=== PATIENT | female | born 1970 | race Caucasian/White ===

== ENCOUNTER 2022-05-29 09:59 | Outpatient (CLI) | payer OTHER, SELFPAY ==
--- NOTE | 2022-05-29 10:15 | CRLHL7_ITS ---
For Patients: As a result of the Century Cures Act, medical imaging exams and procedure reports are released immediately into your electronic medical record. You may view this report before your referring provider. If you have questions, please contact your health care provider. BILATERAL SCREENING MAMMOGRAM WITH COMPUTER-AIDED DETECTION AND TOMOSYNTHESIS TECHNIQUE: CC and MLO views were obtained. These mammographic images have been obtained using full-field digital technique. These mammographic images were interpreted with the benefit of computer-aided detection. Breast Tomosynthesis was used in this interpretation. COMPARISON FILM: 08/02/20, 05/05/19, 12/27/17. FINDINGS: There are scattered areas of fibroglandular density IMPRESSION: There is no radiographic evidence for malignancy. ASSESSMENT: BI-RADS Category 1: Negative RECOMMENDATION: Routine screening mammogram in 1 year. A lay language report of this examination will be provided to the patient. Prasad Lei M.D. Diagnostic Radiologist [email or web address] MARY/Dictated by: Prasad Lei MD @ 05/29/2022 11:26:00 AM (Electronically Signed)
== END 2022-05-29 10:00 | disposition home or self-care (01) ==
LOC: MAMMO 10:02
PROVIDERS: PCP Family Medicine; Visit Provider Family Medicine
DX: Z12.31 Encounter for screening mammogram for malignant neoplasm of breast (principal)
CPT/HCPCS: 77063; 77067

== ENCOUNTER 2022-11-09 08:30 | Outpatient (CLI) | payer OTHER, SELFPAY | END 2022-11-09 08:31 | disposition home or self-care (01) | LOC: NFLDREF 11-10 11:17 | PROVIDERS: PCP Family Medicine; Referring Provider Family Medicine; Visit Provider Family Medicine | DX: Z00.00 Encounter for general adult medical examination without abnormal findings (principal); E78.5 Hyperlipidemia, unspecified; R73.03 Prediabetes; E55.9 Vitamin D deficiency, unspecified; E66.9 Obesity, unspecified | CPT/HCPCS: 80053; 80061 ==

== ENCOUNTER 2022-11-12 07:08 | Outpatient (CLI) | payer OTHER, SELFPAY | END 2022-11-12 07:09 | disposition home or self-care (01) | LOC: NFLDREF 07:10 | PROVIDERS: PCP Family Medicine; Visit Provider Family Medicine | DX: E55.9 Vitamin D deficiency, unspecified (principal); R73.03 Prediabetes | CPT/HCPCS: 82306 ==

== ENCOUNTER 2023-06-25 08:58 | Outpatient (CLI) | payer OTHER, SELFPAY | END 2023-06-25 08:59 | disposition home or self-care (01) | LOC: NFLDREF 14:50 | PROVIDERS: PCP Family Medicine; Referring Provider Family Medicine; Visit Provider Family Medicine | DX: E55.9 Vitamin D deficiency, unspecified (principal); R73.03 Prediabetes; E78.5 Hyperlipidemia, unspecified | CPT/HCPCS: 80061; 82306 ==

== ENCOUNTER 2023-08-02 08:05 | Outpatient (CLI) | payer BC, SELFPAY ==
--- OUTSIDE RECORDS SUMMARY | 2023-08-02 08:07 | XMS_ITS | Encounter Summary ---
Author Name Unknown Organization [facility] Address [address] [place] [address] Care Team Providers Care Wire Spiral Binder Name Role Phone Elsewhere, Pcp Primary Care Provider Unavailabl e Encounter Details Date Type Department Care Team (Latest Contact Info) Description 02/26/2023 12:53 PM CDT - 02/26/2023 11:59 PM CDT Hospital Encounter Department of Laboratory Medicine and Pathology, [facility] in [place], [place] [address] [place] [phone] Julito Bhat M.B., B.Ch., B.A.O. [address] [place] [phone] Beat Premature Ventricular; Ventricular Tachycardia Unspecified (HCC) Discharge Disposition: Home or Self Care Social History Tobacco Use Types Packs/Day Years Used Date Smoking Tobacco: Never Passive Smoke Exposure: Past Smokeless Tobacco: Never Alcohol Use Standard Drinks/Week Comments Yes 14 (1 standard drink = 0.6 oz pu re alcohol) Humiliation, Afraid, Rape, and Kick questionnair e Answer Date Recorded Within the last year, have y ou been afraid of your partner or ex-partner? No 01/21/2023 Within the last year, have y ou been humiliated or emotionally abused in other ways by your partner or ex-partner? No Within the last year, have y ou been kicked, hit, slapped, or otherwise physically hurt by your partner or ex-partner? No 01/21/2023 Within the last year, have y ou been raped or forced to have any kind of sexual activity by your partner or ex-partner? No 01/21/2023 Overall Financial Resource Strain (CARDIA) Answe r Date Recorded How hard is it for you to pa y for the very basics like food, housing, medical care, and heating? Not hard at all 01/21/2023 Exercise Vital Sign Answer Date Recorde d On average, how many days pe r week do you engage in moderate to strenuous exercise (like a brisk walk)? 7 days 01/21/2023 On average, how many minutes do you engage in exercise at this level? 40 min 01/21/2023 Hunger Vital Sign Answer Date Recorded Within the past 12 months, y ou worried that your food would run out before you got the money to buy more. Never true 01/22/20 Within the past 12 months, t he food you bought just didn't last and you didn't have money to get more. Never true 01/21/2023 PRAPARE - Transportation Answer Date Re corded In the past 12 months, has l ack of transportation kept you from medical appointments or from getting medications? No 01/09 In the past 12 months, has l ack of transportation kept you from meetings, work, or from getting things needed for daily living? No 01/21/2023 Nutrition Answer Date Recorded Nutrition: EVOO Fat Source Unknown 01/21 On average, how many serving s of fruits and vegetables do you eat per day (serving size is equal to 1 cup or approximately the size of a tennis ball)? 3-5 01/21/2023 Dental Answer Date Recorded Dental: Regular Dentist Yes 01/22/20 Housing Stability Answer Date Recorded What is your living situation today? I have a [facility] place to live 01/21/2023 Sex and Gender Information Value Date Recorded Sex Assigned at Female 01/21/2023 9:13 AM CDT Gender Identity Female 01/21/2023 9:13 AM CDT Sexual Orientation Straight 01/21/2023 9: 13 AM CDT documented as of this encounter Medications at Time of Discharge Medication Sig Dispensed Refills Start Date End Date famotidine (PEPCID) 20 mg tablet Take 20 mg by mouth as needed. 0 11/12/2009 rosuvastatin (CRESTOR) 5 mg tablet Take 5 mg by mouth daily. 0 11/12/2022 sertraline (ZOLOFT) 25 mg tablet Take 25 mg by mouth daily. 0 Vitamin D3 50 mcg (2,000 unit) tablet Take 50 mcg by mouth daily. 0 11/12/2022 apixaban (ELIQUIS) 5 mg tablet Take 1 tablet (5 mg total) by mouth 2 (two) times a day. For 1 month, then discontinue. 60 tablet 0 03/01/2023 05/20/2023 documented as of this encounter Plan of Treatment Not on file documented as of this encounter Procedures Procedure Name Priority Date/Time Associated Diagnosis Comments THYROID FUNCTION CASCADE, S Routine 02/26/2023 1:03 PM CDT Beat Premature Ventricular Ventricular Tachycardia Unspecified (HCC) CBC WITHOUT DIFFERENTIAL, B Routine 02/26/2023 1:03 PM CDT Beat Premature Ventricular Ventricular Tachycardia Unspecified (HCC) TYPE AND SCREEN Routine 02/26/2023 1:03 PM CDT Beat Premature Ventricular Ventricular Tachycardia Unspecified (HCC) BASIC METABOLIC PANEL, S/P Routine 02/26/2023 1:03 PM CDT Beat Premature Ventricular Ventricular Tachycardia Unspecified (HCC) documented in this encounter Results * Thyroid Function Evans (02/26/2023 1:03 PM CDT) TSH, Sensitive 2.1 0.3 - 4.2 mIU/L 02/26/2023 2:16 PM CDT DTL Blood (Blood, Venous) 02/26/2023 1:03 PM CDT 02/26/2023 1:47 PM CDT Julito Baker B.Simba., B.A.O. LAB BL OOD ADD-ON [facility] [address] [place] [address], [facility] DTL [facility] 200 [place] [address] * Type and Screen (with Reflex Antibody ID) (02/26/2023 1:03 PM CDT) [facility] ABORh O Pos Not applicable 02/26/2023 4:45 PM CDT ETRM Antibody Screen Negative Negative 02/26/2023 5:03 PM CDT ETRM Type & Screen Expiration 04/26/2023 23:59 02/26/2023 4:45 PM CDT ETRM Testing Location [place] DEFAULT 02/26/2023 1:36 PM CDT ETRM Blood (Blood, Venous) 02/26/2023 1:03 PM CDT 02/26/2023 1:36 PM CDT Julito Baker, B.Ch., B.A.O. LAB BL OOD BANK TEST ORDERABLES [facility] 200 [place] [address], [facility] ETRM [facility] 200 [place] [address] * Basic Metabolic Panel (02/26/2023 1:03 PM CDT) [facility] Potassium, S 4.6 3.6 - 5.2 mmol/L 02/26/2023 2:16 PM CDT DTL Sodium, S 142 135 - 145 mmol/L 02/26/2023 2:16 PM CDT DTL Chloride, S 104 98 - 107 mmol/L 02/26/2023 2:16 PM CDT DTL Bicarbonate, S 29 22 - 29 mmol/L 02/26/2023 2:16 PM CDT DTL Anion Gap 9 7 - 15 02/26/2023 2:16 PM CDT DTL BUN (Blood Urea Nitrogen), S 14 6 - 21 mg/dL 02/26/2023 2:16 PM CDT DTL Creatinine 0.88 0.59 - 1.04 mg/dL 02/26/2023 2:16 PM CDT DTL Estimated GFR (eGFR) 80 >=60 mL/min/BSA 02/26/2023 2:16 PM CDT DTL Comment: Estimated GFR calculated using the 2020 CKD_EPI creatinine equation. Calcium, Total, S 9.7 8.6 - 10.0 mg/dL 02/26/2023 2:16 PM CDT DTL Glucose, S 95 70 - 140 mg/dL 02/26/2023 2:16 PM CDT DTL Blood (Blood, Venous) 02/26/2023 1:03 PM CDT 02/26/2023 1:47 PM CDT Julito Baker, B.Ch., B.A.O. LAB BL OOD ADD-ON [facility] 200 [place] [address], [facility] [address] [address] * CBC without Differential (02/26/2023 1:03 PM CDT) Hemoglobin 14.0 11.6 - 15.0 g/dL 02/26/2023 1:49 PM CDT DTL Hematocrit 44.1 35.5 - 44.9 % 02/26/2023 1:49 PM CDT DTL Erythrocytes 5.00 3.92 - 5.13 x10(12)/L 02/26/2023 1:49 PM CDT DTL MCV 88.2 78.2 - 97.9 fL 02/26/2023 1:49 PM CDT DTL RBC Distrib Width 13.5 12.2 - 16.1 % 02/26/2023 1:49 PM CDT DTL Platelet Count 271 157 - 371 x10(9)/L 02/26/2023 1:49 PM CDT DTL Leukocytes 7.7 3.4 - 9.6 x10(9)/L 02/26/2023 1:49 PM CDT DTL Blood (Blood, Venous) 02/26/2023 1:03 PM CDT 02/26/2023 1:41 PM CDT Julito Baker, B.Simba., B.A.O. LAB BL OOD ADD-ON [facility] [address] [place] [address], [facility] [address] [place] [address] documented in this encounter Visit Diagnoses Diagnosis Beat Premature Ventricular Ventricular Tachycardia Unspecified (HCC) documented in this encounter Care Teams Wire Spiral Binder Relationship Specialty Start Date End Date Elsewhere, Pcp PCP - General Internal Medicine 02/26/23 documented as of this encounter
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
--- OUTSIDE RECORDS SUMMARY | 2023-08-02 08:07 | XMS_ITS | Encounter Summary ---
Author Name Unknown Organization [facility] Address [address] [place] [address] Care Team Providers Care Director Underwriter Sales Name Role Phone Elsewhere, Pcp Primary Care Provider Unavailabl e Reason for Visit * Outpatient (Routine) - Closed Specialty Diagnoses / Procedures Referred By Contac t Referred To Contact Diagnoses Beat Premature Ventricular Procedures Echo - Intraprocedural Images Only Juliot Bhat M.B., B.Ch., B.A.O. [address] [place] [phone] [facility] Referral ID Status Reason Start Date Expiration Date Visits Re quested Visits Authorized [id number] Closed 03/04/2023 03/03/2024 1 1 Encounter Details Date Type Department Care Team (Latest Contact Info) Description 03/01/2023 - 03/01/2023 7:44 AM CDT Hospital Encounter Department of Cardiovascular Diseases in [place], [place] [address] [place] [phone] Julito Bhat M.B., B.Ch., B.A.O. [address] [place] [phone] Beat Premature Ventricular Discharge Disposition: Home or Self Care Social [...] your living situation today? I have a [facility] place to live 01/21/2023 Sex and Gender [...] Procedure Name Priority Date/Time Associated Diagnosis Comments ECHO - INTRAPROCEDURAL IMAGES ONLY Routine 03/01/2023 5:41 PM CDT Beat Premature Ventricular documented in this encounter Results * Echo - Intraprocedural Images Only (03/01/2023 5:41 PM CDT) Narrative [facility] - 03/04/2023 5:41 PM CDT Echocardiographic images obtained during EP. See EP report for findings. Julito Baker, B.Simba., B.A.O. CV ECH O PROCEDURES [facility] NA documented in this encounter Visit Diagnoses Diagnosis Beat Premature Ventricular documented in this encounter Care Teams Director Underwriter Sales Relationship Specialty Start Date End Date Elsewhere, Pcp PCP - General Internal Medicine 02/26/23 documented as of this encounter
--- OUTSIDE RECORDS SUMMARY | 2023-08-02 08:07 | XMS_ITS | Encounter Summary ---
Author Name Unknown Organization [facility] Address [address] [place] [address] Care Team Providers Care [employer] Artistic Director Name Role Phone Elsewhere, Pcp Primary Care Provider Unavailabl e Reason for Referral * Outpatient (Routine) - Authorized Specialty Diagnoses / Procedures Referred By Contac t Referred To Contact Diagnoses Beat Premature Ventricular Procedures ECG Heart rhythm monitor (Holter) Margarita Barreto APRN, C.N.P., D.N.P. [address] [place] [phone] [facility] Referral ID Status Reason Start Date Expiration Date V isits Requested Visits Authorized [id number] Authorized 03/01/2023 02/29/2024 1 1 LANCE OPERATOR Reason for Visit * Outpatient (Routine) - Authorized Specialty Diagnoses / Procedures Referred By Contac t Referred To Contact Diagnoses Beat Premature Ventricular Procedures ECG Heart rhythm monitor (Holter) Margarita Barreto APRN, C.N.P., D.N.P. [address] [place] [phone] [facility] Referral ID Status Reason Start Date Expiration Date V isits Requested Visits Authorized [id number] Authorized 03/01/2023 02/29/2024 1 1 Encounter Details Date Type Department Care Team (Latest Contact Info) Description 05/21/2023 8:40 AM FREELANCE OPERATOR - 05/21/2023 11:59 PM FREELANCE OPERATOR Hospital Encounter Department of Cardiovascular Diseases in [place], [place] [address] [place] [phone] Margarita Barreto APRN, C.N.P., D.N.P. [address] [place] [phone] Beat Premature Ventricular Discharge Disposition: Home or [...] your living situation today? I have a [facility] place to live 01/21/2023 Sex and [...] 50 mcg by mouth daily. 0 11/12/2022 documented as of this encounter Plan of Treatment Not on file documented as of this encounter Procedures Procedure Name Priority Date/Time Associated Diagnosis Comments HOLTER MONITOR - IN CLINIC OCEANOGRAPHY TEACHER Routine 05/22/2023 1:31 AM FREELANCE OPERATOR Beat Premature Ventricular documented in this encounter Results * HOLTER MONITOR - IN CLINIC OCEANOGRAPHY TEACHER (05/22/2023 1:31 AM FREELANCE OPERATOR) Min Heart Rate 51 bpm INFOB IONIC MOME Max Heart Rate 130 bpm INFOB IONIC MOME Mean Heart Rate 69 bpm INFOBIONIC MOME VE Total Beats 5 count INFOB IONIC MOME VE Percent Beats less than 1 percent INFOBIONIC MOME SVE Total Beats 6 count INFOBIONIC MOME SVE Percent Beats less than 1 percent INFOBIONIC MOME AF Count 0 count INFOBIONIC MOME AF Duration 0 duration INFOBION IC MOME AF Iola 0 percent INFOBIONIC MOME Symptom Count 0 count INFOBI ONIC MOME 05/21/2023 8:55 AM FREELANCE OPERATOR Narrative INFOBIONIC MOME - 05/24/2023 2:58 PM FREELANCE OPERATOR 1. The basic rhythm was sinus with sinus arrhythmia. The total analyzed time was 23h 47m. The heart rate varied from 51 to 130 bpm. The average HR was 69 bpm. 2. Premature ventricular complexes were noted singly. There were 5 PVCs recorded with a PVC burden of less than 1%. 3. Premature supraventricular complexes were noted singly. There were 6 PACs recorded with a PAC burden of less than 1%. 4. No symptomatic events were noted. Derivatives Trader: Heavenly Correa/956 Fellow: Herb Velazquez Procedure Note Shon Aggarwal M.D. - 05/24/2023 1. The basic rhythm was sinus with sinus arrhythmia. The total analyzedtime was 23h 47m. The heart rate varied from 51 to 130 bpm. The average HRwas 69 bpm. 2. Premature ventricular complexes were noted singly. There were 5 PVCsrecorded with a PVC burden of less than 1%. 3. Premature supraventricular complexes were noted singly. There were 6PACs recorded with a PAC burden of less than 1%. 4. No symptomatic events were noted. Derivatives Trader: Heavenly Correa/956 Fellow: Herb Velazquez Margarita Barreto APRN, C.N.P., D.N.P. CV C[facility] PROCEDURES [facility] NA documented in this encounter Visit Diagnoses Diagnosis Beat Premature Ventricular documented in this encounter Care Teams [employer] Artistic Director Relationship Specialty Start Date End Date Elsewhere, Pcp PCP - General Internal Medicine 02/26/23 documented as of this encounter
--- OUTSIDE RECORDS SUMMARY | 2023-08-02 08:07 | XMS_ITS | Encounter Summary ---
Author Name Unknown Organization [facility] Address [address] [place] [id number] Care Team Providers Care Head Of Conservation Name Role Phone Elsewhere, Pcp Primary Care Provider Unavailabl e Reason for Visit * Auth/Cert (Routine) Specialty Diagnoses / Procedures Referred By Contac t Referred To Contact Diagnoses Beat Premature Ventricular Ventricular Tachycardia Unspecified (HCC) Beat Premature Ventricular [I49.3] Ventricular Tachycardia Unspecified (HCC) [I47.20] Procedures [place] EP EVAL W VENT TACHY ABLATE ABLATION - PVC Referral ID Status Reason Start Date Expiration Date Visits Re quested Visits Authorized [id number] 1 1 Encounter Details Date Type Department Care Team (Late st Contact Info) Description 03/01/2023 8:15 AM CDT - 03/01/2023 2:05 PM CDT Surgery Division of Cardiovascular Diseases in [place], [place] [address] [place] [phone] Julito Bhat M.B., B.Ch., B.A.O. [address] [place] [phone] Ablation - PVC Social History Tobacco Use Types Packs/Day Years [...] your living situation today? I have a [facility] place to live 01/21/2023 Sex and Gender Information Value Date Recorded Sex Assigned at Female 01/21/2023 9:13 AM CDT Gender Identity Female 01/21/2023 9:13 AM CDT Sexual Orientation Straight 01/21/2023 9: 13 AM CDT documented as of this encounter Last Filed Vital Signs Vital Sign Reading Time Taken Comments Blood Pressure 176/79 03/01/2023 2:00 PM CDT Pulse 58 03/01/2023 2:00 PM CDT Temperature 36.7 ??C (98.1 ??F) 03/01/2023 8:01 AM CD T Respiratory Rate 10 03/01/2023 8:01 AM CDT Oxygen Saturation 96% 03/01/2023 2:00 PM CDT Inhaled Oxygen Concentration - - Weight 97.6 kg (215 lb 2.7 oz) 03/01/2023 8:01 A M CDT Height 162.8 cm (5' 4.09) 03/01/2023 8:01 AM CD T Body Mass Index 36.83 03/01/2023 8:01 AM CDT documented in this encounter Discharge Summaries * Margarita Barreto APRN, C.N.P., D.N.P. - 03/01/2023 2:08 PM CDT DISCHARGE SUMMARY BRIEF OVERVIEW Discharge Provider: Julito Bhat M.B., B.Ch., B.A.O., M.B. RST CVD Interventional/Heart Rhythm Admission Date: 03/01/2023 Discharge Date: 03/01/2023 PRINCIPAL DIAGNOSIS Hospital Problems as of 03/01/2023 1. Beat Premature Ventricular Status post catheter ablation, February 2023 2. PreDiabetes 3. Obesity Body Mass Index 30-39.9 Adult 4. Gastroesophageal Reflux Disease 5. Dyslipidemia 6. Hernia Hiatal 7. Depression 8. Anxiety DISCHARGE DISPOSITION Home. CONDITION AT DISCHARGE Stable. DISCHARGE MEDICATIONS Discharge Medications TAKE these medications apixaban 5 mg tablet Commonly known as: ELIQUIS Take 1 tablet (5 mg total) by mouth 2 (two) times a day. For 1 month, then discontinue. famotidine 20 mg tablet Commonly known as: PEPCID Take 20 mg by mouth as needed. rosuvastatin 5 mg tablet Commonly known as: CRESTOR Take 5 mg by mouth daily. sertraline 25 mg tablet Commonly known as: ZOLOFT Take 25 mg by mouth daily. Vitamin D3 50 mcg (2,000 Unit) tablet Take 50 mcg by mouth daily. Generic drug: cholecalciferol DIAGNOSTICS Results from last 7 days Lab Units 02/26/23 1303 WBC x10(9)/L 7.7 HEMOGLOBIN g/dL 14.0 HEMATOCRIT % 44.1 MCV fL 88.2 PLATELETS AUTO x10(9)/L 271 Results from last 7 days Lab Units 02/26/23 1303 SODIUM mmol/L 142 CHLORIDE mmol/L 104 CREATININE mg/dL 0.88 ESTIMATED GFR EGFR mL/min/BSA 80 BUN mg/dL 14 ANION GAP 9 GLUCOSE S mg/dL 95 CALCIUM mg/dL 9.7 ECG 12 Lead Result Date: 03/01/2023 Normal sinus rhythm Nonspecific ST abnormality When compared with ECG of 04-JAN-2023 12:50, Premature ventricular complexes are no longer present Reviewed by NOE Cannon VITALS Temperature: [36.7 ??C] 36.7 ??C Heart Rate: [51-74] 64 Resp Rate: [10] 10 Blood Pressure: (113-176)/(64-87) 113/64 SpO2: [91 %-98 %] 98 % Pulse Rate: [51-76] 51 PHYSICAL EXAM General: 52-year-old female in no acute distress. Heart: S1, S2. Lungs: Clear to auscultation bilaterally. No rales, wheezing, or rhonchi auscultated. Extremities: Warm and well-perfused. Neuro: Alert and cooperative. WOUND Right and left femoral catheter insertion sites are clean, dry and intact. No bleeding. No hematoma. No bruit. HOSPITAL COURSE Mrs. Hager was admitted to the hospital on March 01, 2023 for catheter ablation of ventricular ectopy performed by Dr. Bhat. There were no known complications. Mrs. Hager was not dismissed home on antiarrhythmic therapy. Due to Mrs. Hager's ablation procedure, she will require uninterrupted, therapeutic anticoagulation for a minimum of 1 month. She was initiated on Apixaban (Eliquis) 5 mg by mouth twice daily. Mrs. Hager is recommended to follow up with her local primary care provider in approximately 7 to10 days for a post hospital follow up appointment. Mrs. Hager will return to [facility] in approximately 3 months for a follow up appointment. Prior to that appointment, she will undergo an ECG and 24-hour Holter monitor. Margarita Barreto APRN, C.N.P., Jose De Jesus.N.P. documented in this encounter Discharge Instructions * Discharge Instructions* Margarita Barreto APRN, C.N.P., Jose De Jesus.N.P. - 03/01/2023 10:45 AM CDT You were discharged from the [facility] CVD Interventional/Heart Rhythm Service. Please identify this service name if you call with questions after hospitalization. Activity Restrictions: For 7 days after the procedure do not - lift, push, or pull more than 5-10 lbs - do strenuous exercise (biking, weight lifting, aerobics, golfing) - strain - participate in sexual activity - do not submerge the wound sites, you may shower Driving Restrictions: -do not drive for 24 hours after discharge from the hospital Work/School Restrictions: Return to work/school in 7 days. Recurrence of your Arrhythmia: Should you have sustained recurrence of your arrhythmia that last more than 24- 48 hours; or symptoms become intolerable, you should seek immediate medical attention with your local providers and get an ECG. Seek Emergent Medical Treatment for: Chest pain, passing out, stroke symptoms, shortness of breath, recurrence of your arrhythmia with symptoms that are severe, temperature greater than 101.4, or excessive/prolonged bleeding events. Care of your Puncture Sites: Bandages may be removed 24 hrs after the procedure. You do not need to place new bandages. The wounds heal best open to the air. If there is a small amount of oozing or bleeding new bandages can be placed in an effort to prevent damage to clothing but is not required. Note that mild bruising and color change without pain may occur during normal healing at the puncture site. If you have active bleeding or swelling of the puncture site: - Lie down and apply firm pressure with two or three fingers over the puncture site for 15 minutes. - If you are alone when bleeding occurs or after holding pressure for 15 minutes, the bleeding continues, call 911 and continue to hold pressure until help arrives. - Do not try to drive yourself to the hospital. Call Your Local Provider for: - New or expanding swelling greater than a size of a golf ball at the groin puncture site/s. - Signs of infection (redness, drainage, fever) at the puncture site/s - Change in color, temperature, or sensation in the leg - Unusual feelings of weakness or faintness. Contact Information: Should you have any questions, concerns, or problems that occur Wednesday through Wednesday between 8:00 a.m. and 4:00 p.m., contact the Electrophysiology Service at [phone]. For questions occurring after business hours, on weekends, nights, or holidays call [phone] and ask for Electrophysiology Director Of Early Childhood. Heart Failure Assessment: Weigh yourself at the same time every day on the same scale and record to bring to your next appointment. Please report any of the following signs or symptoms to your primary care provider urgently: - Weight increase of 2-3 pounds in one day or increase of 5 pounds over your baseline weight. - Increased swelling or bloating, fatigue, weakness, or shortness of breath. - Difficulty breathing, especially with activity and at night -Take your medications as directed; every day, every dose, and do not skip doses. -No tobacco (avoid secondhand smoke) -DO NOT avoid/skip your follow-up appointments, they are important! documented in this encounter Medications at Time of Discharge [...] as of this encounter Plan of Treatment Scheduled Referrals Name Type Priority Associated Diagnoses Order Schedule Cardiovascular Disease office visit (clinic) HRS Outpatient Referral Routine Expected: 06/01/2023 (Approximate), Expires: 06/01/2024 documented as of this encounter Procedures Procedure Name Priority Date/Time Associated Diagnosis Comments ECG Routine 03/01/2023 1:23 PM CDT ADULT OXYGEN THERAPY Routine 03/01/2023 12:40 PM CDT HEART RHYTHM PROCEDURE Routine 03/01/2023 12:25 PM CDT Beat Premature Ventricular Ventricular Tachycardia Unspecified (HCC) HEART RHYTHM PROCEDURE Routine 03/01/2023 12:25 PM CDT Beat Premature Ventricular Ventricular Tachycardia Unspecified (HCC) ACT, POCT, B Routine 03/01/2023 12:02 PM CDT ACT, POCT, B Routine 03/01/2023 11:35 AM CDT ACT, POCT, B Routine 03/01/2023 11:06 AM CDT ACT, POCT, B Routine 03/01/2023 10:35 AM CDT ACT, POCT, B Routine 03/01/2023 10:13 AM CDT documented in this encounter Results * HOLTER MONITOR - IN CLINIC ENTERPRISE INFRASTRUCTURE ARCHITECT (05/22/2023 1:31 AM LINEMARKER) Min Heart Rate 51 bpm INFOB IONIC [...] Duration 0 duration INFOBION IC MOME AF [place] 0 percent INFOBIONIC MOME Symptom Count 0 count INFOCANDIDA GIBBS 05/21/2023 8:55 AM LINEMARKER Narrative STEPHANIE GIBBS - 05/24/2023 2:58 PM LINEMARKER 1. The basic rhythm was sinus with [...] 1%. 4. No symptomatic events were noted. Development Vice President: Heavenly Correa/956 Fellow: Herb Velazquez Procedure Note [...] 1%. 4. No symptomatic events were noted. Development Vice President: Heavenly Correa/956 Fellow: Herb Velazquez Margarita Barreto APRN, C.N.P., D.N.P. CV CARDIAC SERVICES PROCEDURES STEPHANIE GIBBS NA * ECG 12 Lead (05/21/2023 8:31 AM LINEMARKER) Ventricular Rate ECG/Min 61 BPM MUSE [place] Interval 170 ms MUSE QRSD Interval 88 ms MUSE QT Interval 414 ms MUSE QTC Interval 416 ms MUSE P Flushing 10 degrees MUSE R [place]ushing 12 degrees MUSE T Wave [place] 47 degrees MUSE 05/21/2023 8:31 AM LINEMARKER 05/21/2023 8:39 AM LINEMARKER Impressions MUSE - 05/21/2023 8:39 AM LINEMARKER Normal sinus rhythm Nonspecific ST abnormality When compared with ECG of 01-MAR-2023 13:23, No significant change was found Reviewed by NOE Mitchell Narrative Procedure Note Ismael Mike Jr., M.D. - 05/21/2023 IMPRESSION: Normal sinus rhythm Nonspecific ST abnormality When compared with ECG of 01-MAR-2023 13:23, No significant change was found Reviewed by NOE Mitchell Margarita Barreto APRN C.N.P., D.N.P. EC G ORDERABLES Performing Organization Address [facility] Co de Phone Number MUSE NA * ECG 12 Lead (03/01/2023 1:23 PM CDT) Ventricular Rate ECG/Min 62 BPM MUSE [place] Interval 178 ms MUSE QRSD Interval 82 ms MUSE QT Interval 440 ms MUSE QTC Interval 446 ms MUSE P Flushing 47 degrees MUSE R [place] 31 degrees MUSE T Wave [place] 55 degrees MUSE 03/01/2023 1:23 PM CDT 03/01/2023 1:48 PM CDT Impressions MUSE - 03/01/2023 1:48 PM CDT Normal sinus rhythm Nonspecific ST abnormality When compared with ECG of 04-JAN-2023 12:50, Premature ventricular complexes are no longer present Reviewed by NOE Cannon Narrative Procedure Note Ismael Mike Jr., M.D. - 03/01/2023 IMPRESSION: Normal sinus rhythm Nonspecific ST abnormality When compared with ECG of 04-JAN-2023 12:50, Premature ventricular complexes are no longer present Reviewed by NOE Cannon Margarita Barreto APRN C.N.P., D.N.P. EC G ORDERABLES Performing Organization Address City/[facility] Co de Phone Number MUSE NA * ABLATION PVC, CARTOSOUND (03/01/2023 12:25 PM CDT) Anatomical Region Laterality Modality X-Ray Angiograph y 03/01/2023 8:59 AM CDT Narrative 03/01/2023 1:57 PM CDT For the complete report, see the Order-Level Documents. PROCEDURE TYPES 1. ??ABLATION - PVC ?? 2. ??3D MAPPING - CARTO ?? PRE-PROCEDURE DIAGNOSIS 1. ??Beat Premature Ventricular ?? 2. ??Ventricular Tachycardia Unspecified (HCC) ?? HRS NOTE Preparation After detailed description of the procedure, including the potential risks, benefits, and potential alternatives, informed consent was obtained from the patient. The patient was then brought to the electrophysiology laboratory and prepped and draped in the usual sterile fashion. ?? Anesthesia staff monitored the patient during the case. ??Anesthesia with MAC was utilized. Access/ Baseline Imaging and Catheters ?? Carto patches were applied for 3D electroanatomic mapping. ??The vascular access sites were locally anesthetized with 1% lidocaine. Using the Seldinger technique and under ultrasound guidance, the following introducer sheaths and catheters were placed: 8Fr femoral arterial sheath, 8 Fr right femoral venous sheath x 2, and 7 Fr left femoral venous sheath, and a 9 Fr left femoral venous sheath. Intracardiac echo was advanced into the right atrium and ventricle to assist with ablation, assess anatomy and monitor for complications. ??There was no pericardial effusion seen before, during or after the case. A quadripolar catheter was advanced to the RV apex. ??A Thermocool ST SF catheter was used for mapping and ablation. ??Additionally coronary sinus venous system was mapped. ?? A map it catheter was placed in the coronary sinus which was paced and recorded. ?? After systemic heparinization the left ventricle was accessed through a retrograde approach. Chambers Mapped Electroanatomic mapping of the LV endocardium was performed. ?? PVC Mapping and Ablation Ablation was performed in the LV endocardium and aortic cusps. Radiofrequency energy was used targeting 15-20 ohm impedance drops with maximum energy of 35 W for 60 seconds. ??refractory sites. PVC #1 RBRI with no precordial transition. Epicardial venous mapping revealed bracketing around MapIt 9-10,11-22, as was approximately 20 ms early. We mapped in front of the cusps and the aortic root, we had an area that was generally early in multiple locations suggesting mid myocardial origin. We then mapped the LCC and it was approximately 25 ms early. Pacemaps were 97- 98%. ?? The PVC was mapped to LCC with activation and pace mapping. ??Ablation was performed successfully Angiography ?? Not required. Final testing At the end of the procedure an Isoproterenol infusion was delivered to a dose of 2 mcg. ??PVC was not present. Case Conclusion/Vascular Closure The procedure was terminated at this time. Final ICE demonstrated no changes from baseline. Catheters were removed from the body. Protamine was administered for reversal of the effects of anticoagulation. The venous sheaths were removed and vascades placed bilaterally. This, along with manual compression, achieved adequate hemostasis. ??The arteriotomy was ??attempted to be closed with a Perclose device but this was unsuccessfully deployed. The patient was awoken from sedation neurologically intact and was transported to the recovery area in stable condition. the attending was present for the entire procedure. IMPRESSION: 1. Successful PVC ablation Recommendations 1. Monitor on telemetry 2. Strict bedrest x 4 hours 3. DOAC x 4 weeks 4. Follow up in clinic in 3 months with repeat holter, ecg. DIAGNOSTIC/ABLATION INTRA-PROCEDURE - MAC Anesthesia - Central access completed - Patient heparinization - Catheter placement - Basic interval determination - 3D mapping performed: Carto Sound - Catheter mapping of the CS during tachycardia - 3D mapping performed: Activation - Mapping of the LVOT during Arrhythmia - Pace mapping - Mapping of the Aortic Root during Arrhythmia - Ablation of the Left Coronary Cusp for PVC - Ablation of the LVOT for PVC - Repeat testing following ablation - Repeat testing with Isoproterenol - Intracardiac ultrasound examination of the heart and pericardial space For the complete report, see the Order-Level Documents. Procedure Note Julito Bhat M.B., B.Ch., B.A.O., M.B. - 03/01/2023 For the complete report, see the Order-Level Documents. PROCEDURE TYPES 1. ABLATION - PVC 2. 3D MAPPING - CARTO PRE-PROCEDURE DIAGNOSIS 1. Beat Premature Ventricular 2. Ventricular Tachycardia Unspecified (HCC) HRS NOTE Preparation After detailed description of the procedure, including thepotential risks, benefits, and potential alternatives, informed consentwas obtained from the patient. The patient was then brought to theelectrophysiology laboratory and prepped and draped in the usual sterilefashion. Anesthesia staff monitored the patient during the case. Anesthesia withMAC was utilized. Access/ Baseline Imaging and Catheters Carto patches were applied for 3D electroanatomic mapping. The vascularaccess sites were locally anesthetized with 1% lidocaine. Using Vanessaldinger technique and under ultrasound guidance, the followingintroducer sheaths and catheters were placed: 8Fr femoral arterial sheath,8 Fr right femoral venous sheath x 2, and 7 Fr left femoral venous sheath,and a 9 Fr left femoral venous sheath. Intracardiac echo was advanced into the right atrium and ventricle toassist with ablation, assess anatomy and monitor for complications. Therewas no pericardial effusion seen before, during or after the case. Aquadripolar catheter was advanced to the RV apex. A Thermocool ST SFcatheter was used for mapping and ablation. Additionally coronary sinusvenous system was mapped. A map it catheter was placed in the coronarysinus which was paced and recorded. After systemic heparinization the left ventricle was accessed through aretrograde approach. Chambers Mapped Electroanatomic mapping of the LV endocardium was performed. PVC Mapping and Ablation Ablation was performed in the LV endocardium andaortic cusps. Radiofrequency energy was used targeting 15-20 ohm impedancedrops with maximum energy of 35 W for 60 seconds. refractory sites. PVC #1 RBRI with no precordial transition. Epicardial venous mapping revealed bracketing around MapIt 9-10,11-22, aswas approximately 20 ms early. We mapped in front of the cusps and theaortic root, we had an area that was generally early in multiple locationssuggesting mid myocardial origin. We then mapped the LCC and it wasapproximately 25 ms early. Pacemaps were 97-98%. The PVC was mapped toLCC with activation and pace mapping. Ablation was performed successfully Angiography Not required. Final testing At the end of the procedure an Isoproterenol infusion was delivered to adose of 2 mcg. PVC was not present. Case Conclusion/Vascular Closure The procedure was terminated at this time. Final ICE demonstrated nochanges from baseline. Catheters were removed from the body. Protamine wasadministered for reversal of the effects of anticoagulation. The venoussheaths were removed and vascades placed bilaterally. This, along withmanual compression, achieved adequate hemostasis. The arteriotomy wasattempted to be closed with a Perclose device but this was unsuccessfullydeployed. The patient was awoken from sedation neurologically intact and wastransported to the recovery area in stable condition. the attending waspresent for the entire procedure. IMPRESSION: 1. Successful PVC ablation Recommendations 1. Monitor on telemetry 2. Strict bedrest x 4 hours 3. DOAC x 4 weeks 4. Follow up in clinic in 3 months with repeat holter, ecg. DIAGNOSTIC/ABLATION INTRA-PROCEDURE - MAC Anesthesia - Central access completed - Patient heparinization - Catheter placement - Basic interval determination - 3D mapping performed: Carto Sound - Catheter mapping of the CS during tachycardia - 3D mapping performed: Activation - Mapping of the LVOT during Arrhythmia - Pace mapping - Mapping of the Aortic Root during Arrhythmia - Ablation of the Left Coronary Cusp for PVC - Ablation of the LVOT for PVC - Repeat testing following ablation - Repeat testing with Isoproterenol - Intracardiac ultrasound examination of the heart and pericardial space For the complete report, see the Order-Level Documents. Julito Baker, B.Ch., B.A.O. CV [facility] CTROPHYSIOLOGY PROCS * (ABNORMAL) ACT (Activated Clotting Time), POCT (03/01/2023 12:02 PM CDT) Activated Clotting Time, POCT 172(H) 84 - 139 sec 03/01/2023 12:10 PM CDT PCSM Blood 03/01/2023 12:0 2 PM CDT 03/01/2023 12:11 PM CDT Unknown Provider LAB POCT ORDERABLES - DEVICE POC RST [facility] [address] [place] [address], [facility] [address] [place] [address] * (ABNORMAL) ACT (Activated Clotting Time), POCT (03/01/2023 11:35 AM CDT) Activated Clotting Time, POCT 299(H) 84 - 139 sec 03/01/2023 11:45 AM CDT PCSM Blood 03/01/2023 11:3 5 AM CDT 03/01/2023 11:45 AM CDT Unknown Provider LAB POCT ORDERABLES - DEVICE Performing Organization Address [facility] Co de Phone Number [facility] [address] [place] [address], [facility] POC [address] [place] [phone] * (ABNORMAL) ACT (Activated Clotting Time), POCT (03/01/2023 11:06 AM CDT) Activated Clotting Time, POCT 281(H) 84 - 139 sec 03/01/2023 11:17 AM CDT PCSM Blood 03/01/2023 11:0 6 AM CDT 03/01/2023 11:17 AM CDT Unknown Provider LAB POCT ORDERABLES - DEVICE Performing Organization Address [facility] Co de Phone Number POC RST [facility] [address] [place] [address], [facility] POC [address] [place] [address] * (ABNORMAL) ACT (Activated Clotting Time), POCT (03/01/2023 10:35 AM CDT) Activated Clotting Time, POCT 304(H) 84 - 139 sec 03/01/2023 10:47 AM CDT PCSM Blood 03/01/2023 10:3 5 AM CDT 03/01/2023 10:47 AM CDT Unknown Provider LAB POCT ORDERABLES - DEVICE Performing Organization Address [facility] Co de Phone Number POC [facility] [address] [place] [address], [facility] POC [address] [place] [address] * (ABNORMAL) ACT (Activated Clotting Time), POCT (03/01/2023 10:13 AM CDT) Activated Clotting Time, POCT 354(H) 84 - 139 sec 03/01/2023 10:25 AM CDT PCSM Blood 03/01/2023 10:1 3 AM CDT 03/01/2023 10:26 AM CDT Unknown Provider LAB POCT ORDERABLES - DEVICE POC RST [facility] [address] [place] [address], [facility] PCSM [facility] POC [address] [place] [address] documented in this encounter Visit Diagnoses Diagnosis Beat Premature Ventricular Ventricular Tachycardia Unspecified (HCC) Depression Anxiety Hernia Hiatal Dyslipidemia Gastroesophageal Reflux Disease Obesity Body Mass Index 30-39.9 Adult PreDiabetes Beat Premature Ventricular Ventricular Tachycardia Unspecified (HCC) Beat Premature Ventricular documented in this encounter Admitting Diagnoses Diagnosis Beat Premature Ventricular Ventricular Tachycardia Unspecified (HCC) documented in this encounter Administered Medications Inactive Administered Medications - up to 3 most recent administrations Medication Order MAR Action Action Date Dose Rate Site acetaminophen tablet 1,000 mg (TYLENOL) 1,000 mg, oral, Every 6 hours PRN, mild pain or score 1-3 of 10, Starting on Wed03/01/23 at 1311, PACU & Post-Op atropine injection 0.5 mg 0.5 mg, intravenous, Once as needed, for pulse less than 50 beats per minute, Starting on Wed03/01/23 at 1311, For 1 dose, PACU & Post-Op fentaNYL injection 25 mcg (SUBLIMAZE) 25 mcg, intravenous, Every 2 min PRN, moderate pain or score 4-6 of 10, severe pain or score 7-10 of 10, Starting on Wed03/01/23 at 1240, PACU (only), Up to maximum total dose of 200 mcg Given 03/01/2023 2:22 PM CDT 25 mcg fentaNYL injection 25 mcg (SUBLIMAZE) 25 mcg, intravenous, Every 2 hour PRN, moderate pain or score 4-6 of 10, Starting on Wed03/01/23 at 1311, PACU & Post-Op, May repeat x1 dosing interval, if patient unable to take oral analgesics or oral analgesics are ineffective fentaNYL injection 50 mcg (SUBLIMAZE) 50 mcg, intravenous, Every 2 hour PRN, severe pain or score 7-10 of 10, Starting on Wed03/01/23 at 1311, PACU & Post-Op, May repeat x1 dosing interval, if patient unable to take oral analgesics or oral analgesics are ineffective ketorolac injection 15 mg (TORADOL) 15 mg, intravenous, Once, On Wed03/01/23 at 1300, For 1 dose, PACU (only), Adult IV push rate: Over 15 seconds. Peds IV push rate: Over 1 minute. Doses > 15 mg IV/IM are discouraged due to lack of additional analgesic benefit. Given 03/01/2023 2:21 PM CDT 15 mg lidocaine (PF) 10 mg/mL (1 %) injection 2-5 mL (XYLOCAINE) 2-5 mL, subcutaneous, As needed, to start central line, Starting on Wed03/01/23 at 0951, Intraprocedure (CV), 5 mL per access site, if not numb then 2 mL additional until patient numb per access site (maximum of 3 sites, two femoral and one internal jugular). lidocaine 10 mg/mL (1 %) injection (XYLOCAINE) Code/trauma/sedation medication, Starting on Wed03/01/23 at 0927, Intraprocedure (CV) Given 03/01/2023 9:28 AM CDT 5 mL Right Groin Given 03/01/2023 9:27 AM CDT 7 mL Le ft Groin naloxone injection 0.2 mg (NARCAN) 0.2 mg, intravenous, As needed, respiratory depression, Starting on Wed03/01/23 at 1311, PACU & Post-Op, For RASS Score -4 or less, respiratory rate of less than 8 breaths/min. Notify provider/service and rapid response team (if available at institution). sodium chloride 0.9 % injection 10 mL 10 mL, intravenous, As needed, line care, Peripheral Intravenous Catheter and Rapid Infusion Catheter, Starting on Wed03/01/23 at 0822, Preprocedure (CV), Prior to blood sampling, post blood transfusion or post blood sampling. sodium chloride 0.9 % injection 3 mL 3 mL, intravenous, As needed, line care, Peripheral Intravenous Catheter and Rapid Infusion Catheter, Starting on Wed03/01/23 at 0822, Preprocedure (CV), Prior to and following infusion and between multiple consecutive infusions. sodium chloride 0.9 % injection 3 mL 3 mL, intravenous, Every 12 hours scheduled, First dose on Wed03/01/23 at 0900, Preprocedure (CV), Peripheral Intravenous Catheter and Rapid Infusion Catheter: When no infusion to maintain patency. documented in this encounter Active and Recently Administered Medications Times are shown in CDT. Scheduled Medication Order 02/27/2023 02/28/2023 03/01/2023 ketorolac injection 15 mg (TORADOL) (COMPLETED) 15 mg, intravenous, Once, On Wed03/01/23 at 1300, For 1 dose, PACU (only), Adult IV push rate: Over 15 seconds. Peds IV push rate: Over 1 minute. Doses > 15 mg IV/IM are discouraged due to lack of additional analgesic benefit. 1421 (Given - Provid er: Tomi Jewell R.N., [facility]) sodium chloride 0.9 % injection 3 mL 3 mL, intravenous, Every 12 hours scheduled, First dose on Wed03/01/23 at 0900, Preprocedure (CV), Peripheral Intravenous Catheter and Rapid Infusion Catheter: When no infusion to maintain patency. 0900 (Due) PRN Medication Order 02/27/2023 02/28/2023 03/01/2023 acetaminophen tablet 1,000 mg (TYLENOL) 1,000 mg, oral, Every 6 hours PRN, mild pain or score 1-3 of 10, Starting on Wed03/01/23 at 1311, PACU & Post-Op atropine injection 0.5 mg 0.5 mg, intravenous, Once as needed, for pulse less than 50 beats per minute, Starting on Wed03/01/23 at 1311, For 1 dose, PACU & Post-Op fentaNYL injection 25 mcg (SUBLIMAZE) 25 mcg, intravenous, Every 2 min PRN, moderate pain or score 4-6 of 10, severe pain or score 7-10 of 10, Starting on Wed03/01/23 at 1240, PACU (only), Up to maximum total dose of 200 mcg 1422 (Given - Provid er: Tomi Jewell R.N., [facility]) fentaNYL injection 25 mcg (SUBLIMAZE)(Linked Group 1) 25 mcg, intravenous, Every 2 hour PRN, moderate pain or score 4-6 of 10, Starting on Wed03/01/23 at 1311, PACU & Post-Op, May repeat x1 dosing interval, if patient unable to take oral analgesics or oral analgesics are ineffective fentaNYL injection 50 mcg (SUBLIMAZE)(Linked Group 1) 50 mcg, intravenous, Every 2 hour PRN, severe pain or score 7-10 of 10, Starting on Wed03/01/23 at 1311, PACU & Post-Op, May repeat x1 dosing interval, if patient unable to take oral analgesics or oral analgesics are ineffective granisetron (PF) injection 1 mg (KYTRIL) 1 mg, intravenous, Once as needed, nausea, vomiting, Starting on Wed03/01/23 at 1240, For 1 dose, PACU (only), If patient does not respond to ondansetron or haloperidol. (order of antiemetic administration - ondansetron then haloperidol then granisetron) ketamine injection 10 mg (KETALAR) 10 mg, intravenous, Once as needed, Refractory moderate pain or score 4-6 of 10, Refractory severe pain score 7-10 of 10 after fentanyl or hydromorphone administration, Pain sedation mismatch AND RASS less than -1, Starting on Wed03/01/23 at 1240, For 1 dose, PACU (only) lidocaine (PF) 10 mg/mL (1 %) injection 2-5 mL (XYLOCAINE) 2-5 mL, subcutaneous, As needed, to start central line, Starting on Wed03/01/23 at 0951, Intraprocedure (CV), 5 mL per access site, if not numb then 2 mL additional until patient numb per access site (maximum of 3 sites, two femoral and one internal jugular). lidocaine 10 mg/mL (1 %) injection (XYLOCAINE) (CANCELED) Code/trauma/sedation medication, Starting on Wed03/01/23 at 0927, Intraprocedure (CV) 0927 (Given - Provid er: Leanne Logan R.N.)0928 (Given - Provider: Leanne Logan R.N.) naloxone injection 0.2 mg (NARCAN) 0.2 mg, intravenous, As needed, respiratory depression, Starting on Wed03/01/23 at 1311, PACU & Post-Op, For RASS Score -4 or less, respiratory rate of less than 8 breaths/min. Notify provider/service and rapid response team (if available at institution). ondansetron (PF) injection 4 mg (ZOFRAN) 4 mg, intravenous, Every 6 hours PRN, nausea, vomiting, (If patient has not received in the previous 6 hours), Starting on Wed03/01/23 at 1240, PACU (only), Administer first. If nausea and vomiting persists, proceed with haloperidol. (order of antiemetic administration - ondansetron then haloperidol then granisetron) sodium chloride 0.9 % injection 10 mL 10 mL, intravenous, As needed, line care, Peripheral Intravenous Catheter and Rapid Infusion Catheter, Starting on Wed03/01/23 at 0822, Preprocedure (CV), Prior to blood sampling, post blood transfusion or post blood sampling. sodium chloride 0.9 % injection 3 mL 3 mL, intravenous, As needed, line care, Peripheral Intravenous Catheter and Rapid Infusion Catheter, Starting on Wed03/01/23 at 0822, Preprocedure (CV), Prior to and following infusion and between multiple consecutive infusions. Linked Groups Order Group 1: fentaNYL injection 25 mcg (SUBLIMAZE)Jump to med 25 mcg, intravenous, Every 2 hour PRN, moderate pain or score 4-6 of 10, Starting on Wed03/01/23 at 1311, PACU & Post-Op, May repeat x1 dosing interval, if patient unable to take oral analgesics or oral analgesics are ineffective Or fentaNYL injection 50 mcg (SUBLIMAZE)Jump to med 50 mcg, intravenous, Every 2 hour PRN, severe pain or score 7-10 of 10, Starting on Wed03/01/23 at 1311, PACU & Post-Op, May repeat x1 dosing interval, if patient unable to take oral analgesics or oral analgesics are ineffective documented in this encounter Care Teams Head Of Conservation Relationship Specialty Start Date End Date Elsewhere, Pcp PCP - General Internal Medicine 02/26/23 documented as of this encounter
--- OUTSIDE RECORDS SUMMARY | 2023-08-02 08:07 | XMS_ITS ---
Author Name Unknown Organization [facility] Address [address] [place] [address] Care Team Providers Care Vice President Risk Management Name Role Phone Unavailable Unavailable Unavailable Surgery Details Not on file Complications Check Surgery Details section. Procedure Estimated Blood Loss Check Surgery Details section. Procedure Findings Check Surgery Details section. Procedure Specimens Taken Check Surgery Details section.
--- OUTSIDE RECORDS SUMMARY | 2023-08-02 08:07 | XMS_ITS | Encounter Summary ---
Author Name Unknown Organization [facility] Address [address] [place] [address] Care Team Providers Care Tube Test Technician Name Role Phone Elsewhere, Pcp Primary Care Provider Unavailabl e Reason for Referral * Outpatient (Routine) - Closed Specialty Diagnoses / Procedures Referred By Britney spencer Referred To Contact Cardiovascular Disease Margarita Barreto APRN, C.N.P., D.N.P. [address] [place] [phone] Julito Bhat M.B., B.Ch., B.A.O. [address] [place] [phone] Referral ID Status Reason Start Date Expiration Date Visits Re quested Visits Authorized [id number] Closed 03/01/2023 02/28/2026 1 1 * Outpatient (Routine) - Authorized Specialty Diagnoses / Procedures Referred By Britney spencer Referred To Contact Diagnoses Beat Premature Ventricular Procedures ECG Heart rhythm monitor (Holter) Margarita Barreto APRN C.N.PPadilla, D.N.P. [address] [place] [phone] [facility] Referral ID Status Reason Start Date Expiration Date V isits Requested Visits Authorized [id number] Authorized 03/01/2023 02/29/2024 1 1 * Outpatient (Routine) - Closed Specialty Diagnoses / Procedures Referred By Britney spencer Referred To Contact Diagnoses Beat Premature Ventricular Procedures ECG 12 Lead Margarita Barreto APRN, C.N.Nadir, Jose De Jesus.N.PPadilla [address] [place] [phone] [facility] Referral ID Status Reason Start Date Expiration Date Visits Re quested Visits Authorized [id number] Closed 03/01/2023 02/29/2024 1 1 Reason for Visit * Auth/Cert (Routine) Specialty Diagnoses / Procedures Referred By Britney t Referred To Contact Diagnoses Beat Premature Ventricular Ventricular Tachycardia Unspecified (HCC) Beat Premature Ventricular [I49.3] Ventricular Tachycardia Unspecified (HCC) [I47.20] Procedures [place] EP EVAL W VENT TACHY ABLATE ABLATION - PVC Referral ID Status Reason Start Date Expiration Date Visits Re quested Visits Authorized [id number] 1 1 Encounter Details Date Type Department Care Team (Latest Contact Info) Description 03/01/2023 7:45 AM CDT - 03/01/2023 5:34 PM CDT Hospital Encounter Division of Cardiovascular Diseases in [place], [place] [address] [place] [phone] Julito Bhat M.B., B.Ch., B.A.O. [address] [place] [phone] Beat Premature Ventricular; Ventricular Tachycardia Unspecified (HCC) [...] your living situation today? I have a [facility] to live 01/21/2023 Sex and Gender Information Value Date Recorded Sex Assigned at Female 01/21/2023 9:13 AM CDT Gender Identity Female 01/21/2023 9:13 AM CDT Sexual Orientation Straight 01/21/2023 9: 13 AM CDT documented as of this encounter Last Filed Vital Signs Vital Sign Reading Time Taken Comments Blood Pressure 113/64 03/01/2023 4:00 PM CDT Pulse 58 03/01/2023 5:15 PM CDT Temperature 36.7 ??C (98.1 ??F) 03/01/2023 8:01 AM CD T Respiratory Rate 10 03/01/2023 8:01 AM CDT Oxygen Saturation 96% 03/01/2023 5:15 PM CDT Inhaled Oxygen Concentration - - [...] up appointment. Mrs. Hager will return to [facility] in approximately 3 months for a follow up appointment. Prior to that appointment, she will undergo an ECG and 24-hour Holter monitor. Margarita Barreto APRN, C.N.P., Jose De Jesus.N.P. documented in this encounter Discharge Instructions * Discharge Instructions* Margarita Barreto APRN, C.N.P., Jose De Jesus.N.P. - 03/01/2023 10:45 AM CDT You were discharged from the [facility] CVD Interventional/Heart Rhythm Service. Please identify this [...] 4:00 p.m., contact the Electrophysiology Service at [phone]. For questions occurring after business hours, on weekends, nights, or holidays call [phone] and ask for Electrophysiology Foster Winder. Heart Failure Assessment: Weigh yourself at the [...] Results * HOLTER MONITOR - IN CLINIC RETICLE PRINTER (05/22/2023 1:31 AM ENVIRONMENTAL SERVICES LEAD) Min Heart Rate 51 bpm INFOB IONIC [...] Duration 0 duration INFOBION IC MOME AF [place] 0 percent INFOBIONIC MOME Symptom Count 0 count INFOBI ONIC MOME 05/21/2023 8:55 AM ENVIRONMENTAL SERVICES LEAD Narrative INFOBIOPAUL MOME - 05/24/2023 2:58 PM ENVIRONMENTAL SERVICES LEAD 1. The basic rhythm was sinus with [...] 1%. 4. No symptomatic events were noted. Milk Tanker Driver: Heavenly Correa/956 Fellow: Herb Velazquez Procedure Note [...] 1%. 4. No symptomatic events were noted. Milk Tanker Driver: Heavenly Correa/956 Fellow: Herb Velazquez Margarita Barreto APRN, C.N.P., D.N.P. CV CARDIAC SERVICES PROCEDURES STEPHANIE GIBBS NA * ECG 12 Lead (05/21/2023 8:31 AM ENVIRONMENTAL SERVICES LEAD) Ventricular Rate ECG/Min 61 BPM MUSE [place] Interval 170 ms MUSE QRSD Interval 88 ms MUSE QT Interval 414 ms MUSE QTC Interval 416 ms MUSE P [place] 10 degrees MUSE R [place] 12 degrees MUSE T Wave [place] 47 degrees MUSE 05/21/2023 8:31 AM ENVIRONMENTAL SERVICES LEAD 05/21/2023 8:39 AM ENVIRONMENTAL SERVICES LEAD Impressions MUSE - 05/21/2023 8:39 AM ENVIRONMENTAL SERVICES LEAD Normal sinus rhythm Nonspecific ST abnormality When compared with ECG of 01-MAR-2023 13:23, No significant change was found Reviewed by NOE Mitchell Narrative Procedure Note Ismael Mike Jr., M.D. - 05/21/2023 IMPRESSION: Normal sinus rhythm Nonspecific ST abnormality When compared with ECG of 01-MAR-2023 13:23, No significant change was found Reviewed by NOE Mitchell Margarita Barreto APRN, C.N.P., D.N.P. EC G ORDERABLES MUSE NA * ECG 12 Lead (03/01/2023 1:23 PM CDT) Ventricular Rate ECG/Min 62 BPM MUSE [place] Interval 178 ms MUSE QRSD Interval 82 ms MUSE QT Interval 440 ms MUSE QTC Interval 446 ms MUSE P [place] 47 degrees MUSE R [place] 31 degrees MUSE T Wave [place] 55 degrees MUSE 03/01/2023 1:23 PM CDT [...] present Reviewed by NOE Cannon Margarita Barreto APRN, C.N.P., Delroy EC G ORDERABLES MUSE NA * ABLATION PVC, CARTOSOUND (03/01/2023 [...] - 139 sec 03/01/2023 12:10 PM CDT [facility] Blood 03/01/2023 12:0 2 PM CDT 03/01/2023 12:11 PM CDT Unknown Provider LAB POCT ORDERABLES - DEVICE POC [facility] [address] [place] [address], [facility] PCSM [facility] POC [address] [place] [address] * (ABNORMAL) ACT (Activated Clotting Time), POCT (03/01/2023 11:35 AM CDT) Activated Clotting Time, POCT 299(H) 84 - 139 sec 03/01/2023 11:45 AM CDT PCSM Blood 03/01/2023 11:3 5 AM CDT 03/01/2023 11:45 AM CDT Unknown Provider LAB POCT ORDERABLES - DEVICE Performing Organization Address City/[facility] [place]/ZIP Co de Phone Number [facility] [address] [facility] [address] [place] [address] * (ABNORMAL) ACT (Activated Clotting Time), POCT (03/01/2023 11:06 AM CDT) Activated Clotting Time, POCT 281(H) 84 - 139 sec 03/01/2023 11:17 AM CDT PCSM Blood 03/01/2023 11:0 6 AM CDT 03/01/2023 11:17 AM CDT Unknown Provider LAB POCT ORDERABLES - DEVICE Performing Organization Address [facility] [place]/[facility] Co de Phone Number [facility] [address] POC [address] [place] [address] * (ABNORMAL) ACT (Activated Clotting Time), POCT (03/01/2023 10:35 AM CDT) Activated Clotting Time, POCT 304(H) 84 - 139 sec 03/01/2023 10:47 AM CDT PCSM Blood 03/01/2023 10:3 5 AM CDT 03/01/2023 10:47 AM CDT Unknown Provider LAB POCT ORDERABLES - DEVICE Performing Organization Address City/[facility] [place]/ZIP Co de Phone Number [facility]OC [facility] [address] [place] [address], [facility] POC [address] [place] [address] * (ABNORMAL) ACT (Activated Clotting Time), POCT (03/01/2023 10:13 AM CDT) Activated Clotting Time, POCT 354(H) 84 - 139 sec 03/01/2023 10:25 AM CDT [facility] Blood 03/01/2023 10:1 3 AM CDT 03/01/2023 10:26 AM CDT Unknown Provider LAB POCT ORDERABLES - DEVICE Performing Organization Address City/State/[facility] Co de Phone Number POC [facility] [address] [place] [address], [facility] PCSM [facility] POC [address] [place] [address] documented in this encounter Visit Diagnoses Diagnosis [...] sites, two femoral and one internal jugular). naloxone injection 0.2 mg (NARCAN) 0.2 mg, [...] (Given - Provid er: Tomi Jewell R.N., [facility]) sodium chloride 0.9 % injection 3 [...] (Given - Provid er: Tomi Jewell R.N., [facility]) fentaNYL injection 25 mcg (SUBLIMAZE)(Linked Group [...] Starting on Wed03/01/23 at 0927, Intraprocedure (CV) 09 (Given - Provid er: Leanne Logan R.N.)0928 [...] ineffective documented in this encounter Care Teams Tube Test Technician Relationship Specialty Start Date End Date Elsewhere, Pcp PCP - General Internal Medicine 02/26/23 documented as of this encounter
--- OUTSIDE RECORDS SUMMARY | 2023-08-02 08:07 | XMS_ITS | Encounter Summary ---
Author Name Unknown Organization [facility] Address [address] [place] [address] Care Team Providers Care Aprn Name Role Phone Elsewhere, Pcp Primary Care Provider Unavailabl e Reason for Visit * Reason Onset Date Comments Pre-visit Intake 05/20/2023 Encounter Details Date Type Department Care Team (Latest Contact Info) Description 05/20/2023 12:00 PM CLOTH EDGE SINGER Clinical Communication Virtual Review in [place], [place] [address] [place], [place] [address] Pre-visit Intake Social History Tobacco Use Types Packs/Day Years Used Date Smoking Tobacco: Never Passive Smoke Exposure: Past Smokeless Tobacco: Never Tobacco Cessation:Counseling Given: Not Answered Alcohol Use Standard Drinks/Week Comments Yes 14 [...] your living situation today? I have a [facility] place to live 01/21/2023 Sex and Gender Information Value Date Recorded Sex Assigned at Female 01/21/2023 9:13 AM CDT Gender Identity Female 01/21/2023 9:13 AM CDT Sexual Orientation Straight 01/21/2023 9: 13 AM CDT documented as of this encounter Plan of Treatment Not on file documented as of this encounter Visit Diagnoses Not on filedocumented in this encounter Care Teams Aprn Relationship Specialty Start Date End Date Elsewhere, Pcp PCP - General Internal Medicine 02/26/23 documented as of this encounter
--- OUTSIDE RECORDS SUMMARY | 2023-08-02 08:07 | XMS_ITS | Encounter Summary ---
Author Name Unknown Organization [facility] Address [address] [place] [id number] Care Team Providers Care Almond Blancher Name Role Phone Elsewhere, Pcp Primary Care Provider Unavailabl e Reason for Visit * Auth/Cert (Routine) Specialty Diagnoses / Procedures Referred By Contac t Referred To Contact Diagnoses Beat Premature Ventricular Ventricular Tachycardia Unspecified (HCC) Beat Premature Ventricular [I49.3] Ventricular Tachycardia Unspecified (HCC) [I47.20] Procedures TN EP EVAL W VENT TACHY ABLATE ABLATION - PVC Referral ID Status Reason Start Date Expiration Date Visits Re quested Visits Authorized [id number] 1 1 Encounter Details Date Type Department Care Team (Late st Contact Info) Description 03/01/2023 8:39 AM CDT Anesthesia Event Division of Cardiovascular Diseases in [place], [place] [address] [place] [phone] Whit Sierra APRN, CRNA, DNAP [address] [place] [phone] Anesthesia Record Procedure Summary Procedure Name Responsible Anesthesiologist Anesthesia Start Time Anesthesia Stop Time Ablation - PVC Whit Sierra APRN, CRNA, DNAP 03/01/23 0839 03/01/23 1229 Events Date Time Event Comment 03/01/2023 0839 An Start Machine/Equipme nt Checked Infection Precautions Followed Procedure/Site Verified NPO Status Verified Supine Standard ASA Monitors Applied 0841 Turnover to Proceduralist 0859 Proc Start 1212 Turnover to ANE Staff 1212 Proc Fin 1219 an stop data 1229 An End I completed my handoff to the receiving staff during which we 1. Identified the patient 2. Identified the responsible provider 3. Reviewed the pertinent medical history 4. Discussed the surgical course 5. Reviewed intra-op anesthesia management and issues during anesthesia 6. Set expectations for post-procedure period 7. Allowed opportunity for questions and acknowledgement of understanding. Meds Name Total propofol 10 mg/mL injection 50 mg propofol 10 mg/mL infusion 2,339.96 mg isoproterenol 4 mcg/mL in NaCl 0.9% 250 mL infusion (ISUPREL) 0.02 mg heparin 1,000 units/mL injection 12,000 Units heparin standard 19771 Units/250 mL in 0 .45 % Sodium Chloride infusion 2,381.44 Units protamine 10 mg/mL injection 30 mg acetaminophen 1,000 mg/100 mL injection 1,000 mg Lactated Ringers Free Drip 500 mL lactated ringers free drip 550 mL heparin 2 units/mL for RFA infusion 200 mL * Agents No agents on file. * Blood No blood administrations on file. Lines, Drains, and Airways Type Details Placement Removal Peripheral IV Placement Date: 03/01/23; Placement Time: 820; Orientation: Anterior, Left, Lower, Proximal; Location: Forearm; Site Prep: Chlorhexidine (Preferred) 03/01/23 08 by Shon Stringer, R.N. Peripheral IV Placement Date: 03/01/23; Placement Time: 840; Catheter Size: 18 G; Orientation: Right; Location: Hand; Removal Date: 03/01/23; Removal Time: 1533 03/01/23 0841 by Whit Sierra APRN, BRYAN, DNAP 03/01/23 1533 by Tomi Jewell R.N., [facility] Arterial Line Placement Date: 03/01/23; Placemnt Time: 904 (created via procedure documentation); Size: 20 G; Orientation: Left; Location: Radial; Site Prep: Chlorhexidine (Preferred); Technique: Anatomical landmarks; Insertion Attempts: 1; Securement: Securement dressing, Securement device; Removal Date: 03/01/23; Removal Time: 1200 03/01/23 0905 by Whit Sierra APRN, BRYAN, DNAP 03/01/23 1200 by Lizzie Royal, R.NPadilla Indwelling Urinary Catheter Placement Date: 03/01/23; Placement Time: 917; Type: Double-lumen, Latex; Size: 16 Fr.; Balloon Size: 10 mL; Urine Returned: Yes; Removal Date: 03/01/23; Removal Time: 1531; Removal Reason: Per order 03/01/23917 by Liliya Shipley 03/01/231531 by Tomi Jewell R.N., [facility] Percutaneous Access Site 03/01/23; 09; Temporary (non-tunneled, non-implanted); Venous; Left Femoral; 9 Fr., 7 Fr.; Ultrasound; Dry, Intact, No bleeding, No hematoma; 03/01/23; 1220 03/01/23 0930 by Leanne Logan R.NPadilla 03/01/23 1220 by Lizzie Royal R.N. Percutaneous Access Site 03/01/23; 0940; Temporary (non-tunneled, non-implanted); Arterial and Venous; Right Femoral; 8 Fr.; 8 Fr. x 2; Heparinized Saline (see MAR); Suture; Ultrasound; Dry, Intact, No bleeding, No hematoma; 03/01/23; 1220 03/01/23 0940 by Leanne Logan, R.NPadilla 03/01/23 1220 by Lizzie Royal, R.N. documented in this encounter Social History Tobacco Use Types Packs/Day Years [...] your living situation today? I have a [facility] place to live 01/21/2023 Sex and Gender Information Value Date Recorded Sex Assigned at Female 01/21/2023 9:13 AM CDT Gender Identity Female 01/21/2023 9:13 AM CDT Sexual Orientation Straight 01/21/2023 9: 13 AM CDT documented as of this encounter OR Notes * Anesthesia Postprocedure Evaluation - Whit Sierra, CHUNG, BRYAN, DNAP - 03/01/2023 12:29 PM CDT Patient: Hilda Seth Kimberton Procedure Summary Date: 03/01/23 Room / Location: [facility] 106 / T [facility] Anesthesia Start: 838 Anesthesia Stop: 1228 Procedures: Ablation - PVC 3D Mapping - Carto Diagnosis: Beat Premature Ventricular Ventricular Tachycardia Unspecified (HCC) (Beat Premature Ventricular [I49.3]) (Ventricular Tachycardia Unspecified (HCC) [I47.20]) Surgeons: Julito Bhat M.B., Yves, B.ALeoncio, M.BPadilla Responsible Provider: Whit Sierra APRN, CRNA, DNAP Anesthesia Type: MAC ASA Status: 2 Anesthesia Type: MAC Last vitals Vitals Value Taken Time BP Temp Pulse Resp SpO2 Please reference Vitals flowsheet for most recent vital signs. Anesthesia Post Evaluation Patient Disposition: dismissal Cardiovascular status: hemodynamics (HR & BP) acceptable Respiratory status: patent airway with spontaneous effort Temperature: normothermic Oxygen requirements: room air Level of consciousness: awake Pain score: pain adequately controlled and/or at baseline Post Op nausea/vomiting: none Hydration status: euvolemic * Anesthesia Procedure Notes - Whit Sierra APRN, CRNA, DNAP - 03/01/2023 11:57 AM CDTAssociated Order(s): Invasive Catheter Invasive Catheter Date/Time: 03/01/2023 9:05 AM Performed by: Whit Sierra APRN, CRNA, DNAP Authorized by: Whit Sierra APRN, CRNA, DNAP Location: OR PROCEDURE DETAILS: Line type: arterial Laterality: left Location: radial Location details: new site Age group: adult Catheter diameter: 20 Ga Technique: palpation Monitored: yes Number of attempts: 1 UNIVERSAL PROTOCOL All relevant documentation and testing were reviewed and available. All required blood products, implants, devices and or special equipment were made available as applicable. Pre-procedure verification was conducted and the correct site was marked if required. A fire risk assessment was done as applicable. The procedural time-out to verify correct patient, correct side/site, and procedure was conducted prior to performing the procedure and confirmed in a procedural pause. PRE-PROCEDURE DETAILS: Appropriate hand hygiene, gown, cap, mask, protective eyewear, sterile gloves, skin preparation, sterile drape, and strict aseptic technique were utilized as applicable for the procedure.: yes Skin preparation: chlorhexidine SEDATION / ANESTHESIA Anesthesia method: local infiltration Local infiltrate type: lidocaine POST-PROCEDURE DETAILS: Procedure completed successfully: yes Line secured: secured with sutureless device Chlorhexidine disc around insertion site and under catheter with slight turn: yes Complications - arterial: none * Anesthesia Preprocedure Evaluation - Whit Sierra APRN, CRNA, DNAP - 03/01/2023 8:38 AM CDT Preprocedure Anesthesia & H&P Assessment Procedure Summary Date/Time: 03/01/23814 Procedures: Ablation - PVC 3D Mapping - Carto Diagnosis: Beat Premature Ventricular [I49.3] Ventricular Tachycardia Unspecified (HCC) [I47.20] Pre-op diagnosis: Beat Premature Ventricular [I49.3] Ventricular Tachycardia Unspecified (HCC) [I47.20] Location: [place] [address] / [facility] Surgeons: Julito Bhat M.B., B.Ch., B.A.O., M.B. Pertinent components of the patient's history including current problem list, medical history, surgical history, family history, social history, medications and allergies were reviewed. Present illness and pre-op diagnosis were confirmed. The planned surgery / procedure was verified with the patient / legal guardian. The patient's general health condition remains unchanged RELEVANT COMORBID CONDITIONS CV (+) Beat Premature Ventricular (+) Ventricular Tachycardia Unspecified (HCC) GI (+) Gastroesophageal Reflux Disease Other (+) Obesity Body Mass Index 30-39.9 Adult OBJECTIVE PHYSICAL EXAMINATION Airway (HEENT) Mallampati: II TM Distance: >3 FB Neck ROM: Full Mouth Opening: >3 cm Cardiovascular Rhythm: Regular Rate: Normal Functional Capacity: >4 METS Pulmonary Pulmonary Assessment: Clear General / Constitutional Constitutional Assessment: Overweight General State of Health:: healthy appearing Neurological Neurologic Assessment: alert and alert and oriented x 3 ASSESSMENT / PLAN ANESTHESIA PLAN ASA: 2 Anesthesia Plan: MAC Patient seen and allergies reviewed, anesthesia plan and risks discussed directly with patient /legal guardian or through an house wirer. Risks/Benefits/Alternatives of Blood transfusion discussed with patient / legal guardian, includingan opportunity to ask questions and/or decline some or all transfusion therapies. The patient / legal guardian consented to the use of all blood products, as deemed medically necessary Approval to Proceed: approved for anesthesia documented in this encounter Plan of Treatment Not on file documented as of this encounter Procedures Procedure Name Priority Date/Time Associated Diagnosis Comments LDA ANE ARTERIAL LINE INSERTION Routine 03/01/2023 9:05 AM CDT TN ARTL CATH/CNULA MONITOR PERC Routine 03/01/2023 9:05 AM CDT documented in this encounter Results * TN ARTL CATH/CNULA MONITOR PERC, LDA ANE ARTERIAL LINE INSERTION (03/01/2023 9:05 AM CDT) Narrative Whit Sierra APRN, CRNA DNAVenkatesh - 03/01/2023 9:05 AM CDT Whit Sierra APRN, CRNA, DNAP ? 03/01/2023 11:58 AM Invasive Catheter Date/Time: 03/01/2023 9:05 AM Performed by: Whit Sierra APRN, CRNA DNAVenkatesh Authorized by: Whit Sierra APRN, CRNA, DNAP ?? Location: OR PROCEDURE DETAILS: Line type: arterial ?? Laterality: left Location: radial Location details: new site ? Age group: adult Catheter diameter: 20 Ga Technique: palpation ?? Monitored: yes ?? Number of attempts: 1 UNIVERSAL PROTOCOL All relevant documentation and testing were reviewed and available. All required blood products, implants, devices and or special equipment were made available as applicable. Pre-procedure verification was conducted and the correct site was marked if required. A fire risk assessment was done as applicable. The procedural time-out to verify correct patient, correct side/site, and procedure was conducted prior to performing the procedure and confirmed in a procedural pause. PRE-PROCEDURE DETAILS: Appropriate hand hygiene, gown, cap, mask, protective eyewear, sterile gloves, skin preparation, sterile drape, and strict aseptic technique were utilized as applicable for the procedure.: yes ?? Skin preparation: chlorhexidine ?? SEDATION / ANESTHESIA Anesthesia method: local infiltration Local infiltrate type: lidocaine POST-PROCEDURE DETAILS: Procedure completed successfully: yes ?? Line secured: secured with sutureless device Chlorhexidine disc around insertion site and under catheter with slight turn: yes ?? Complications - arterial: none Whit Sierra RELOCATION ASSOCIATE, AUTOMOTIVE GENERATOR REPAIRER, DNAP PROCE DURE/MINOR SURGICAL ORDERABLES documented in this encounter Visit Diagnoses Not on filedocumented in this encounter Administered Medications Inactive Administered Medications - up to 3 most recent administrations Medication Order MAR Action Action Date Dose Rate Site acetaminophen injection intravenous, Administer over 15 Minutes, As needed, Starting on Wed03/01/23 at 1151, Anesthesia Intra-op Given 03/01/2023 11:51 AM CDT 1,000 mg heparin (porcine) 1,000 unit/mL injection intravenous, As needed, Starting on Wed03/01/23 at 0954, Anesthesia Intra-op Given 03/01/2023 11:12 AM CDT 2,000 Units Given 03/01/2023 9:54 AM CDT 10,000 Units heparin (porcine) 100 Units/mL in NaCl 0.45% 250 mL infusion intravenous, Continuous Infusion: Per Instructions PRN, Starting on Wed03/01/23 at 0954, Anesthesia Intra-op Rate/Dose Change 03/01/2023 11:11 AM CDT 17 Units/kg/hr 16.592 mL/hr Rate/Dose Change 03/01/2023 10:41 AM CDT 15 Units/kg/hr 14 .64 mL/hr New Bag 03/01/2023 9:54 AM CDT 10 Units/kg/hr 9.76 mL/h r heparin 2,000 Units in NaCl 0.9% 1000 mL flush infusion (premix/CNR) intra-arterial, Continuous Infusion: Per Instructions PRN, Starting on Wed03/01/23 at 0954, Anesthesia Intra-op New Bag 03/01/2023 9:54 AM CDT isoproterenol 4 mcg/mL in NaCl 0.9% 250 mL infusion (ISUPREL) intravenous, Continuous Infusion: Per Instructions PRN, Starting on Wed03/01/23 at 0852, Anesthesia Intra-op Restarted 03/01/2023 11:28 AM CDT 0.02 mcg/kg/min 29.28 mL/hr New Bag 03/01/2023 8:52 AM CDT 0.02 mcg/kg/min 29.28 mL /hr Lactated Ringer's intravenous, Continuous Infusion: Per Instructions PRN, Starting on Wed03/01/23 at 0839, Anesthesia Intra-op New Bag 03/01/2023 8:39 AM CDT Lactated Ringer's intravenous, Continuous Infusion: Per Instructions PRN, Starting on Wed03/01/23 at 0845, Anesthesia Intra-op New Bag 03/01/2023 8:45 AM CDT propofol 10 mg/mL infusion (DIPRIVAN) intravenous, Continuous Infusion: Per Instructions PRN, Starting on Wed03/01/23 at 0856, Anesthesia Intra-op Rate/Dose Change 03/01/2023 12:00 PM CDT 100 mcg/kg/min 58.56 mL/hr Rate/Dose Change 03/01/2023 11:39 AM CDT 125 mcg/kg/min 73 .2 mL/hr New Bag 03/01/2023 11:20 AM CDT 100 mcg/kg/min 58.56 mL /hr propofoL injection (DIPRIVAN) intravenous, As needed, Starting on Wed03/01/23 at 0858, Anesthesia Intra-op Given 03/01/2023 11:35 AM CDT 20 mg Given 03/01/2023 8:58 AM CDT 30 mg protamine injection intravenous, As needed, Starting on Wed03/01/23 at 1142, Anesthesia Intra-op Given 03/01/2023 11:42 AM CDT 30 mg documented in this encounter Care Teams Almond Blancher Relationship Specialty Start Date End Date Elsewhere, Pcp PCP - General Internal Medicine 02/26/23 documented as of this encounter
--- OUTSIDE RECORDS SUMMARY | 2023-08-02 08:07 | XMS_ITS | Referral Summary ---
Author Name Unknown Organization [facility] Address [address] [place] [address] Care Team Providers Care Building Energy Retrofit Technician Name Role Phone Elsewhere, Pcp Primary Care Provider Unavailabl e Source Comments Patient records contain information from all sites at [facility]. For routine questions regarding patient records, call [phone] during business hours, M-F 8:00 AM - 5:00 PM Central Time. Record requests for emergency care only can be directed to [phone] at any time.[facility] Encounters Date Type Department Care Team Description 05/25/2023 11:30 AM SET O TYPE OPERATOR Office Visit Department of Cardiovascular Medicine in [address] [phone] Julito Bhat M.B., B.Ch., B.A.O. Beat Premature Ventricular (Primary Dx) 05/21/2023 8:40 AM SET O TYPE OPERATOR - 05/21/2023 11:59 PM SET O TYPE OPERATOR Hospital Encounter Department of Cardiovascular Diseases in [address] [phone] Margarita Barreto APRN, C.N.P., D.N.P. Beat Premature Ventricular Discharge Disposition: Home or Self Care 05/20/2023 12:00 PM SET O TYPE OPERATOR Clinical Communication Virtual Review in [address] [address] Pre-visit Intake from Last 3 Months Allergies Active Allergy Reactions Criticality Noted Date Comments Penicillins Itching,Rash 11/12/2009 Medications Medication Sig Dispensed Refills Start Date End Date Status Vitamin D3 50 mcg (2,000 unit) tablet Take 50 mcg by mouth daily. 0 11/12/2022 Active famotidine (PEPCID) 20 mg tablet Take 20 mg by mouth as needed. 0 11/12/2009 Active rosuvastatin (CRESTOR) 5 mg tablet Take 5 mg by mouth daily. 0 11/12/2022 Active sertraline (ZOLOFT) 25 mg tablet Take 25 mg by mouth daily. 0 Active Active Problems Problem Noted Date Diagnosed Date PreDiabetes 02/25/2023 Obesity Body Mass Index 30-39.9 Adult 02/25/2023 Gastroesophageal Reflux Disease 02/25/2023 Dyslipidemia 02/25/2023 Hernia Hiatal 02/25/2023 Depression 02/25/2023 Anxiety 02/25/2023 Beat Premature Ventricular 01/27/2023 Overview: Status post catheter ablation, February 2023 Ventricular Tachycardia Unspecified 01/27/2023 Social History Tobacco Use Types Packs/Day Years [...] your living situation today? I have a [facility] place to live 01/21/2023 Sex and Gender Information Value Date Recorded Sex Assigned at Female 01/21/2023 9:13 AM CDT Gender Identity Female 01/21/2023 9:13 AM CDT Sexual Orientation Straight 01/21/2023 9: 13 AM CDT Last Filed Vital Signs Vital Sign Reading Time Taken Comments Blood Pressure 124/81 05/25/2023 11:19 AM SET O TYPE OPERATOR Pulse 67 05/25/2023 11:19 AM SET O TYPE OPERATOR Temperature 36.7 ??C (98.1 ??F) 03/01/2023 8:01 AM CD T Respiratory Rate 10 03/01/2023 8:01 AM CDT Oxygen Saturation 96% 03/01/2023 5:15 PM CDT Inhaled Oxygen Concentration - - Weight 98.4 kg (216 lb 14.9 oz) 023 11:19 AM SET O TYPE OPERATOR Height 165 cm (5' 4.96) 05/25/2023 11: 19 AM SET O TYPE OPERATOR Body Mass Index 36.14 05/25/2023 11:19 AM SET O TYPE OPERATOR Plan of Treatment Not on file Procedures Procedure Name Priority Date/Time Associated Diagnosis Comments HOLTER MONITOR - IN CLINIC LOG SCALER Routine 05/22/2023 1:31 AM SET O TYPE OPERATOR Beat Premature Ventricular ECG Routine 05/21/2023 8:31 AM SET O TYPE OPERATOR Beat Premature Ventricular from Last 3 Months Results * HOLTER MONITOR - IN CLINIC LOG SCALER (05/22/2023 1:31 AM SET O TYPE OPERATOR) Min Heart Rate 51 bpm INFOB [...] Duration 0 duration INFOBION IC MOME AF [place] 0 percent INFOBIONIC MOME Symptom Count 0 count INFOBI ONIC MOME 05/21/2023 8:55 AM SET O TYPE OPERATOR Narrative INFOBIONIC MOME - 05/24/2023 2:58 PM SET O TYPE OPERATOR 1. The basic rhythm was sinus [...] 1%. 4. No symptomatic events were noted. Lining Parts Sewer: Heavenly Correa/956 Fellow: Herb Velazquez Procedure Note [...] 1%. 4. No symptomatic events were noted. Lining Parts Sewer: Heavenly Correa/956 Fellow: Herb Velazquez Viktoriya Dougherty APRN.N.PPadlila, Jose De Jesus.N.P. CV CARDIAC SERVICES PROCEDURES Performing Organization Address City/[facility] Co de Phone Number INFOBIONIC MOME NA * ECG 12 Lead (05/21/2023 8:31 AM SET O TYPE OPERATOR) Ventricular Rate ECG/Min 61 BPM MUSE [place] Interval 170 ms MUSE QRSD Interval 88 ms MUSE QT Interval 414 ms MUSE QTC Interval 416 ms MUSE P [place] 10 degrees MUSE R [place] 12 degrees MUSE T Wave [place] 47 degrees MUSE 05/21/2023 8:31 AM SET O TYPE OPERATOR 05/21/2023 8:39 AM SET O TYPE OPERATOR Impressions MUSE - 05/21/2023 8:39 AM SET O TYPE OPERATOR Normal sinus rhythm Nonspecific ST abnormality When compared with ECG of 01-MAR-2023 13:23, No significant change was found Reviewed by NOE Mitchell Narrative Procedure Note Ismael Mike Jr., M.D. - 05/21/2023 IMPRESSION: Normal sinus rhythm Nonspecific ST abnormality When compared with ECG of 01-MAR-2023 13:23, No significant change was found Reviewed by NOE Mitchell Viktoriya Dougherty APRN.N.P., D.N.P. EC G ORDERABLES MUSE NA from Last 3 Months Advance Directives For more information, please contact: [phone] Latest Code Status on File Code Status Date Activated Date Inactivated Comments Full Code 03/01/2023 1:11 PM 03/01/2023 7:34 PM Question Answer Comments Full Code: Not Discussed Due to: Patient not available Care Teams Building Energy Retrofit Technician Relationship Specialty Start Date End Date Elsewhere, Pcp PCP - General Internal Medicine 02/26/23
--- OUTSIDE RECORDS SUMMARY | 2023-08-02 08:07 | XMS_ITS | Clinical Summary ---
Author Name Unknown Organization [facility] Address [address] [place] [id number] Care Team Providers Care Back Hand Name Role Phone Elsewhere, Pcp Primary Care Provider Unavailabl e Source Comments Patient records contain information from all sites at [facility]. For routine questions regarding patient records, call [phone] during business hours, M-F 8:00 AM - 5:00 PM Central Time. Record requests for emergency care only can be directed to [phone] at any time.[facility] Allergies Active Allergy Reactions Criticality Noted Date [...] ablation, February 2023 Ventricular Tachycardia Unspecified 01/27/2023 Encounters Date Type Department Care Team Description 05/25/2023 11:30 AM PROJECT COORDINATOR RN Office Visit Department of Cardiovascular Medicine in [place], [place] [address] [place] [phone] Julito Bhat M.B., B.Ch., B.A.O. Beat Premature Ventricular (Primary Dx) 05/21/2023 8:40 AM PROJECT COORDINATOR RN - 05/21/2023 11:59 PM PROJECT COORDINATOR RN Hospital Encounter Department of Cardiovascular Diseases in [place], [place] [address] [place] [phone] Margarita Barreto, CHUNG, C.N.P., D.N.P. Beat Premature Ventricular Discharge Disposition: Home or Self Care 05/20/2023 12:00 PM PROJECT COORDINATOR RN Clinical Communication Virtual Review in [place], [place] [address] [place] [address] Pre-visit Intake from Last 3 Months Family History Medical History Relation Name Comments Alcohol abuse Brother Brian Monroykerly Depression Brother Brian Monroykerly Drug abuse Brother Brian Monroykerly Psychiatric Brother Brian Monroykerly Schizophrenia Anxiety disorder Daughter Maddie [place] Depression Daughter Maddie [place] Alcohol abuse Father Michael Seth Diabetes Father Michael Seth Type 2 -insul in shots Parkinson disease Father Michael Seth Obesity Father's Sister 1 Doris Joshi Obesity Father's Sister 2 Mari Tybring Obesity Father's Sister 3 Kristy Pelsor Coronary artery disease Maternal Grandfather Michael neff at age 49 Breast cancer Maternal Grandmother Kelsey at 80 years, hormone responsive Hypertension Maternal Grandmother Kelsey Obesity Maternal Grandmother Kelsey Anxiety disorder Mother Doris Veras Clotting disorder Mother Doris Veras of cardio/pulmonary embolism at age 71 Drug abuse Mother Doris Veras Hyperlipidemia Mother Doris Veras Migraines Mother Doris Veras Asthma Paternal Grandfather Maurisio Rolo Parkinson disease Paternal Grandfather Maurisio Rolo Stroke Paternal Grandmother Kennedy Seth of massive stroke at age 94 Relation Name Status Comments Brother Pelsor Daughter Maddie [place] Father Michael Pelsor Father's Sister 1 Doriswilian Bully Father's Sister 2 Mari [place] Father's Sister 3 Kristy Seth Maternal Grandfather Michael Cerda Maternal Grandmother Kelsey Mother Doris Veras Paternal Grandfather Maurisio Seth Paternal Grandmother Kennedy Monroykerly Social History Tobacco Use Types Packs/Day Years [...] your living situation today? I have a [facility] place to live 01/21/2023 Sex and Gender Information Value Date Recorded Sex Assigned at Female 01/21/2023 9:13 AM CDT Gender Identity Female 01/21/2023 9:13 AM CDT Sexual Orientation Straight 01/21/2023 9: 13 AM CDT Last Filed Vital Signs Vital Sign Reading Time Taken Comments Blood Pressure 124/81 05/25/2023 11:19 AM PROJECT COORDINATOR RN Pulse 67 05/25/2023 11:19 AM PROJECT COORDINATOR RN Temperature 36.7 ??C (98.1 ??F) 03/01/2023 8:01 AM CD T Respiratory Rate 10 03/01/2023 8:01 AM CDT Oxygen Saturation 96% 03/01/2023 5:15 PM CDT Inhaled Oxygen Concentration - - Weight 98.4 kg (216 lb 14.9 oz) 023 11:19 AM PROJECT COORDINATOR RN Height 165 cm (5' 4.96) 05/25/2023 11: 19 AM PROJECT COORDINATOR RN Body Mass Index 36.14 05/25/2023 11:19 AM PROJECT COORDINATOR RN Plan of Treatment Health Maintenance Due Date Last Done Comments CT Colonography 1972 Cologuard 1972 FIT 1972 Hepatitis B Vaccines (1 of 3 - 3-dose series) 1972 Hepatitis C Screening 1972 Mammogram 1972 Zoster Vaccines (1 of 2) 2022 Influenza Vaccine (#1) 2023 2, 04/07/2021, 03/30/2020, Additional history exists Depression Screening (Annual PHQ-2) 07/12/2023 Fasting Glucose for Diabetes Screening 02/27/2024 02/26/2023, 12/03/2015 Cervical Cancer Screening 11/12/2025 11/12/2022 Colonoscopy 12/10/2025 12/11/2015 Colorectal Cancer Screening 12/10/2025 Lipid (Cholesterol) Screening 01/05/2028 01/04/2023 DTaP,Tdap,and Td Vaccines (3 - Td or Tdap) 08/22/2031 08/22/2021, 06/09/2012 COVID-19 Vaccine Completed 04/15/2023, 08/2021, 05/16/2021, Additional history exists Pneumococcal vaccine (0-64 years) Aged Out No longer eligible based on patient's age to complete this topic Procedures Procedure Name Priority Date/Time Associated Diagnosis Comments HOLTER MONITOR - IN CLINIC PROFESSOR OF MEDICINE Routine 05/22/2023 1:31 AM PROJECT COORDINATOR RN Beat Premature Ventricular ECG Routine 05/21/2023 8:31 AM PROJECT COORDINATOR RN Beat Premature Ventricular from Last 3 Months Results * HOLTER MONITOR - IN CLINIC PROFESSOR OF MEDICINE (05/22/2023 1:31 AM PROJECT COORDINATOR RN) Min Heart Rate 51 bpm INFOB IONIC [...] Duration 0 duration INFOBION IC MOME AF [place] 0 percent INFOBIONIC MOME Symptom Count 0 count INFOBI ONIC MOME 05/21/2023 8:55 AM PROJECT COORDINATOR RN Narrative INFOBIONIC MOME - 05/24/2023 2:58 PM PROJECT COORDINATOR RN 1. The basic rhythm was sinus with [...] 1%. 4. No symptomatic events were noted. Program Arranger: Heavenly Correa/956 Fellow: Herb Velazquez Procedure Note [...] 1%. 4. No symptomatic events were noted. Program Arranger: Heavenly Correa/956 Fellow: Herb Velazquez Margarita Barreto APRN C.N.P., D.N.P. CV CARDIAC SERVICES PROCEDURES INFOBIONIC MOME NA * ECG 12 Lead (05/21/2023 8:31 AM PROJECT COORDINATOR RN) Ventricular Rate ECG/Min 61 BPM MUSE FL Interval 170 ms MUSE QRSD Interval 88 ms MUSE QT Interval 414 ms MUSE QTC Interval 416 ms MUSE P [place] 10 degrees MUSE R [place] 12 degrees MUSE T Wave [place] 47 degrees MUSE 05/21/2023 8:31 AM PROJECT COORDINATOR RN 05/21/2023 8:39 AM PROJECT COORDINATOR RN Impressions MUSE - 05/21/2023 8:39 AM PROJECT COORDINATOR RN Normal sinus rhythm Nonspecific ST abnormality When compared with ECG of 01-MAR-2023 13:23, No significant change was found Reviewed by NOE Mitchell Narrative Procedure Note Ismael Mike Jr., M.D. - 05/21/2023 IMPRESSION: Normal sinus rhythm Nonspecific ST abnormality When compared with ECG of 01-MAR-2023 13:23, No significant change was found Reviewed by NOE Mitchell Margarita Barreto APRN, C.N.P., Jose De Jesus.N.PPadilla EC G ORDERABLES MUSE NA from Last 3 Months Advance Directives For more information, please contact: [phone] Latest Code Status on File Code Status Date Activated Date Inactivated Comments Full Code 03/01/2023 1:11 PM 03/01/2023 7:34 PM Question Answer Comments Full Code: Not Discussed Due to: Patient not available Care Teams Back Hand Relationship Specialty Start Date End Date Elsewhere, Pcp PCP - General Internal Medicine 02/26/23
--- OUTSIDE RECORDS SUMMARY | 2023-08-02 08:08 | XMS_ITS | Clinical Summary ---
Author Name Unknown Organization [facility] Address [place], [place] [address] Care Team Providers Care Supervisor Inspection Department Name Role Phone Regina Melendez Primary Care Provid er Allergies Active Allergy Reactions Criticality Noted Date Comments Penicillins Rash 12/28/2013 Medications Medication Sig Dispensed Refills Start Date End Date Status sertraline (ZOLOFT) 25 mg tablet Take 25 mg by mouth once daily. 3 03/24/2019 Active gabapentin (NEURONTIN) 300 mg capsuleIndications:E ye muscle twitches Take 1 capsule by mouth at bedtime. 30 capsule 0 09/11/2019 Active Active Problems No known active problems Immunizations Name Administration Dates Next Due AMB Influenza, IIV3 (Age >=3 years)(Flu Clinic Only) 06/20/2010 AMB Influenza, IIV4 PF (=>6 mos Flulaval,Fluzone Fluarix)(Flu Clinic Only) 06/02/2016 Influenza, IIV3 (Age >=3 years) 06/06/2013,06/09,06/09/2006 Tdap 06/09/2012 Family History Medical History Relation Name Comments Good Health Brother Diabetes Father Good Health Mother Relation Name Status Comments Brother Father Mother Social History Tobacco Use Types Packs/Day Years Used Date Smoking Tobacco: Never Smokeless Tobacco: Never Tobacco Cessation:Counseling Given: Yes Alcohol Use Standard Drinks/Week Comments Yes 0 (1 standard drink = 0.6 oz pur e alcohol) Social Connections Answer Date Recorded Frequency of Communication with Friends and Fami ly Not on file 07/12/2021 Financial Resource Strain Answer Date R ecorded Difficulty of Paying Living Expenses Not on file 07/12/2021 Difficulty of Paying Living Expenses Not on file 07/12/2021 Sex and Gender Information Value Date Recorded Sex Assigned at Not on file Gender Identity Not on file Sexual Orientation Not on file Obstetrics History Last Filed Vital Signs Vital Sign Reading Time Taken Comments Blood Pressure 120/76 09/10/2021 9:42 AM CHEMICAL APPLICATOR Pulse 72 09/10/2021 9:42 AM CHEMICAL APPLICATOR Temperature 36.4 ??C (97.6 ??F) 05/16/2019 9:08 AM CS T Respiratory Rate - - Oxygen Saturation 97% 09/10/2021 9:42 AM CHEMICAL APPLICATOR Inhaled Oxygen Concentration - - Weight 98.1 kg (216 lb 3.2 oz) 09/10/2021 9:42 A M CHEMICAL APPLICATOR Height 163.8 cm (5' 4.5) 09/11/2019 5:55 PM CHEMICAL APPLICATOR Body Mass Index 36.54 09/11/2019 5:55 PM CHEMICAL APPLICATOR Plan of Treatment Health Maintenance Due Date Last Done Comments Depression screening for age 12+ 1984 HIV for age 15-65 12/09/1987 Hepatitis C screening for age 18-79 1990 Colonoscopy through age 75 2017 Lipids for age 45-75 2017 Mammogram for age 45-75 2017 BMI (ht and wt on same day) for age 18+ 09/10/2020 09/11/2019, 05/16/2019 Tetanus booster 06/09/2022 06/09/2012 Zoster (shingles) series for age 50+ (1 of 2) 2022 COVID-19 vaccine series ( season) 2023 05/16/2021, 10/16/2020, 09/18/2020 Influenza for age 50-64 03/12/2023 06/02/20 16, 06/06/2013, 06/09/2012, Additional history exists Pap test for age 21-65 11/12/2025 3, 11/12/2022, 11/10/2016, Additional history exists Tdap Completed 06/09/2012 Pneumococcal series for age 6-64 Aged Out No longer eligible based on patient's age to complete this topic Care Teams Supervisor Inspection Department Relationship Specialty Start Date End Date Regina Melendez DO PCP - General Family Practice 08/12/12
--- OUTSIDE RECORDS SUMMARY | 2023-08-02 08:08 | XMS_ITS | Encounter Summary ---
Author Name Unknown Organization [facility] Address [address] [place] [address] Care Team Providers Care Hadoop Application Developer Name Role Phone Unavailable Primary Care Provider Unavailabl e Encounter Details Date Type Department Care Team (Latest Contact Info) Description 01/04/2023 11:00 AM CDT - 01/04/2023 1:00 PM CDT Hospital Encounter Department of Laboratory Medicine and Pathology, [place], [place] [address] [place] [phone] Chapin Brito M.D. [address] [place] [phone] Ventricular Tachycardia Unspecified (HCC) Discharge Disposition: Home or Self Care Social History Tobacco Use Types Packs/Day Years Used Date Smoking Tobacco: Never Nutrition Answer Date Recorded Nutrition: EVOO Fat Source Unknown 12/16 Nutrition: Servings of Fruits/Vegetables per Day Not on file 12/16/2022 Dental Answer Date Recorded Dental: Regular Dentist Unknown 12/17/19 Sex and Gender Information Value Date Recorded [...] 5 mg by mouth daily. 0 11/12/2022 Vitamin D3 50 mcg (2,000 unit) tablet Take 50 mcg by mouth daily. 0 11/12/2022 documented as of this encounter Plan of Treatment Not on file documented as of this encounter Procedures Procedure Name Priority Date/Time Associated Diagnosis Comments LIPID PANEL, S Routine 01/04/2023 11:20 AM CDT Ventricular Tachycardia Unspecified (HCC) THYROID FUNCTION CASCADE, S Routine 01/04/2023 11:20 AM CDT Ventricular Tachycardia Unspecified (HCC) CBC WITH DIFFERENTIAL, B Routine 01/04/2023 11:20 AM CDT Ventricular Tachycardia Unspecified (HCC) SODIUM, S/P Routine 01/04/2023 11:20 AM CDT Ventricular Tachycardia Unspecified (HCC) POTASSIUM, S/P Routine 01/04/2023 11:20 AM CDT Ventricular Tachycardia Unspecified (HCC) CREATININE WITH EGFR, S/P Routine 01/04/2023 11:20 AM CDT Ventricular Tachycardia Unspecified (HCC) documented in this encounter Results * Thyroid Function [place] (01/04/2023 11:20 AM CDT) TSH, Sensitive 2.5 0.3 - 4.2 mIU/L 01/04/2023 12:39 PM CDT DTL Blood (Blood, Venous) 01/04/2023 11:20 AM CDT 01/04/2023 12:04 PM CDT Chapin Brito M.D. LAB BLOOD ADD-ON [facility] [address] [place] [address], [facility] [address] [place] [address] * Sodium (01/04/2023 11:20 AM CDT) Sodium, S 141 135 - 145 mmol/L 01/04/2023 12:39 PM CDT DTL Blood (Blood, Venous) 01/04/2023 11:20 AM CDT 01/04/2023 12:04 PM CDT Chapin Brito M.D. LAB BLOOD ADD-ON [facility] [address] [place] [address], [facility] [address] [place] [address] * Potassium (01/04/2023 11:20 AM CDT) Potassium, S 4.5 3.6 - 5.2 mmol/L 01/04/2023 12:39 PM CDT DTL Blood (Blood, Venous) 01/04/2023 11:20 AM CDT 01/04/2023 12:04 PM CDT Chapin Brito M.D. LAB BLOOD ADD-ON Performing Organization Address City/[facility]/ZIP Co de Phone Number [facility] [address] [place] [address], [facility] [address] [place] [address] * (ABNORMAL) Lipid Panel (01/04/2023 11:20 AM CDT) Triglycerides 149 mg/dL 01/04/2023 12:39 PM CDT DTL Comment: ----REFERENCE VALUE---- Normal: <150 mg/dL Borderline High: 150-199 mg/dL High: 200-499 mg/dL Very High: > or =500 mg/dL Cholesterol, Total 222(H) mg/dL 2022 12:39 PM CDT DTL Comment: ----REFERENCE VALUE---- Desirable: < 200 mg/dL Borderline High: 200 - 239 mg/dL High: > or = 240 mg/dL Cholesterol, LDL, Calculated 134(H) mg/dL 01/04/2023 12:39 PM CDT DTL Comment: ----REFERENCE VALUE---- Desirable: <100 mg/dL Above Desirable: 100-129 mg/dL Borderline High: 130-159 mg/dL High: 160-189 mg/dL Very High: >=190 mg/dL ----ADDITIONAL INFORMATION---- LDL cholesterol calculated using the Leija/NIH equation. Cholesterol, HDL, S 62 >=50 mg/dL 01/04/2023 12:39 PM CDT DTL Cholesterol, Non-HDL, Calculated 160(H) mg/dL 01/04/2023 12:39 PM CDT DTL Comment: ----REFERENCE VALUE---- Desirable: <130 mg/dL Above Desirable: 130-159 mg/dL Borderline High: 160-189 mg/dL High: 190-219 mg/dL Very High: > or =220 mg/dL Fasting (8 HR or more) No 01/04/2023 12:04 PM CDT DTL Blood (Blood, Venous) 01/04/2023 11:20 AM CDT 01/04/2023 12:04 PM CDT Chapin Brito M.D. LAB BLOOD ADD-ON [facility] [address] [place] [address], [facility] [address] [place] [address] * Creatinine with Estimated GFR (01/04/2023 11:20 AM CDT) Creatinine 0.99 0.59 - 1.04 mg/dL 01/04/2023 12:39 PM CDT DTL Estimated GFR (eGFR) 69 >=60 mL/min/BSA 01/04/2023 12:39 PM CDT DTL Comment: Estimated GFR calculated using the 2020 CKD_EPI creatinine equation. Blood (Blood, Venous) 01/04/2023 11:20 AM CDT 01/04/2023 12:04 PM CDT Chapin Brito M.D. LAB BLOOD ADD-ON [facility] [address] [place] [address], [facility] DTL [facility] [address] [place] [address] * (ABNORMAL) CBC with Differential, Blood (01/04/2023 11:20 AM CDT) Hemoglobin 13.8 11.6 - 15.0 g/dL 01/04/2023 11:52 AM CDT DTL Hematocrit 43.4 35.5 - 44.9 % 01/04/2023 11:52 AM CDT DTL Erythrocytes 4.99 3.92 - 5.13 x10(12)/L 01/04/2023 11:52 AM CDT DTL MCV 87.0 78.2 - 97.9 fL 01/04/2023 11:52 AM CDT DTL RBC Distrib Width 13.2 12.2 - 16.1 % 01/04/2023 11:52 AM CDT DTL Platelet Count 262 157 - 371 x10(9)/L 01/04/2023 11:52 AM CDT DTL Leukocytes 7.4 3.4 - 9.6 x10(9)/L 01/04/2023 11:52 AM CDT DTL Neutrophils 3.64 1.56 - 6.45 x10(9)/L 01/04/2023 11:52 AM CDT DTL Lymphocytes 3.16(H) 0.95 - 3.07 x10(9)/L 01/04/2023 11:52 AM CDT DTL Monocytes 0.45 0.26 - 0.81 x10(9)/L 01/04/2023 11:52 AM CDT DTL Eosinophils 0.11 0.03 - 0.48 x10(9)/L 01/04/2023 11:52 AM CDT DTL Basophils 0.04 0.01 - 0.08 x10(9)/L 01/04/2023 11:52 AM CDT DTL Blood (Blood, Venous) 01/04/2023 11:20 AM CDT 01/04/2023 11:46 AM CDT Chapin Brito M.D. LAB BLOOD ADD-ON [facility] [address] [place] [address], [facility] DTL [facility] [place] [facility] [place] [address] [place] [address] documented in this encounter Visit Diagnoses Diagnosis Ventricular Tachycardia Unspecified (HCC) documented in this encounter
--- OUTSIDE RECORDS SUMMARY | 2023-08-02 08:08 | XMS_ITS | Encounter Summary ---
Author Name Unknown Organization [facility] Address [address] [place] [address] Care Team Providers Care Utility Supervisor Boat And Plant Name Role Phone Unavailable Primary Care Provider Unavailabl e Reason for Referral * Outpatient (Routine) - Closed Specialty Diagnoses / Procedures Referred By Britney spencer Referred To Contact Diagnoses Ventricular Tachycardia Unspecified (HCC) Procedures Echo Transthoracic (TTE) Chapin Brito M.D. [address] [place] [phone] [facility] Referral ID Status Reason Start Date Expiration Date Visits Re quested Visits Authorized [id number] Closed 12/31/2022 12/31/2023 1 1 Reason for Visit * Outpatient (Routine) - Closed Specialty Diagnoses / Procedures Referred By Britney spencer Referred To Contact Diagnoses Ventricular Tachycardia Unspecified (HCC) Procedures Echo Transthoracic (TTE) Chapin Brito M.D. [address] [place] [phone] [facility] Referral ID Status Reason Start Date Expiration Date Visits Re quested Visits Authorized [id number] Closed 12/31/2022 12/31/2023 1 1 Encounter Details Date Type Department Care Team (Latest Contact Info) Description 01/04/2023 1:01 PM CDT - 01/04/2023 2:16 PM CDT Hospital Encounter Department of Cardiovascular Diseases in [place], [place] [address] [place] [phone] Chapin Brito M.D. [address] [place] [address] Ventricular Tachycardia Unspecified (HCC) Discharge Disposition: Home [...] Procedure Name Priority Date/Time Associated Diagnosis Comments (TTE) 2D ECHO DOPPLER COLOR Routine 01/04/2023 2:01 PM CDT Ventricular Tachycardia Unspecified (HCC) documented in this encounter Results * (TTE) 2D ECHO DOPPLER COLOR (01/04/2023 2:01 PM CDT) Ejection Fraction 63 MC CV EIMS Mid-Ascending Aorta 28 MC CV EIMS LV Mass Index 98 MC CV EIMS LV End-Diastolic Diameter 53 MC CV EIMS LV End-Systolic Diameter 34 MC CV EIMS MV E Velocity 0.5 MC CV EIMS MV A Velocity 0.8 MC CV EIMS MV E/A 0.63 MC CV EIMS MV e' Velocity Medial 0.05 MC CV EIMS MV e' Velocity Lateral 0.1 MC CV EIMS MV E/e' Medial 10 MC CV EIMS MV E/e' Lateral 5 MC CV EIMS Left ventricular stroke volume index 43 MC CV EIMS Cardiac Output 5.62 MC CV EIMS Cardiac Index 2.77 MC CV EIMS LV Interventricular Septal Wall Thickness 10 MC CV EIMS LV Posterior Wall Thickness 10 MC CV EIMS LV Relative Wall Thickness 38 MC CV EIMS RA Pressure 5 MC CV EIMS Estimated diastolic pulmonary artery pressure 10 MC CV EIMS AV mean gradient 5 MC CV EIMS Aortic valve area 2.65 MC CV EIMS Aortic Valve Dimensionless Index 0.64 MC CV EIMS LA Volume Index 33 MC CV EIMS Aortic Valve Systolic Peak Velocity 1.6 MC CV EIMS Anatomical Region Laterality Modality Echocardiography 01/04/2023 1:08 PM CDT Impressions 01/04/2023 2:05 PM CDT LEFT VENTRICLE:Normal left ventricular chamber size. Normal left ventricular wall thickness. Calculated 2-D linear left ventricular ejection fraction 63%. No regional wall motion abnormalities. Grade 1/3 left ventricular diastolic dysfunction, consistent with low to normal left ventricular filling pressure. 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 Normal right ventricular systolic function. Unable to detect peak tricuspid regurgitation velocity for pulmonary artery systolic pressure calculation. ATRIA:Normal left atrial size. Left atrial volume index 33 ml/m2. Normal right atrial size. CARDIAC VALVES:Trileaflet aortic valve. Normal aortic valve. No aortic valve regurgitation. Normal mitral valve. Trivial mitral valve regurgitation. Normal pulmonary valve. Normal pulmonary valve systolic velocities. Trivial pulmonary valve regurgitation. Normal tricuspid valve. Trivial tricuspid valve regurgitation. OTHER ECHO FINDINGS:Normal inferior vena cava size with normal inspiratory collapse (>50%). Normal mid ascending aorta diameter of 28 mm. Upper limit of normal of the mid ascending aorta, for age, sex and BSA is 37 mm. No abdominal aortic aneurysm. Normal abdominal aorta Doppler flow pattern. No atrial level shunt by color flow imaging. No intracardiac mass or thrombus, but the left atrial appendage cannot be visualized adequately with transthoracic echo to exclude thrombus in this location. No ?? pericardial effusion. For the complete report, see the Order-Level Documents. Narrative 01/04/2023 2:05 PM CDT For the complete report, see the Order-Level Documents. Hemodynamics Heart Rate: 64 BPM Blood Pressure: 126 / 72 mmHg ECG: Sinus rhythm Final Impressions 1. Normal left ventricular chamber size, no regional wall motion abnormalities, calculated 2-D linear ejection fraction 63%. 2. 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 3. Grade 1/3 left ventricular diastolic dysfunction, consistent with low to normal left ventricular filling pressure. 4. No hemodynamically significant valvular heart disease. 5. Unable to detect peak tricuspid regurgitation velocity for pulmonary artery systolic pressure calculation. 6. Normal right ventricular chamber size, normal systolic function. 7. No ??pericardial effusion. 8. Compared to the report of 10/23/2016 no significant change has occurred. Side by side comparison of images performed. Procedure Note Grady Baxter M.D. - 01/04/2023 For the complete report, see the Order-Level Documents. Hemodynamics Heart Rate: 64 BPM Blood Pressure: 126 / 72 mmHg ECG: Sinus rhythm Final Impressions 1. Normal left ventricular chamber size, no regional wall motionabnormalities, calculated 2-D linear ejection fraction 63%. 2. 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 3. Grade 1/3 left ventricular diastolic dysfunction, consistent with lowto normal left ventricular filling pressure. 4. No hemodynamically significant valvular heart disease. 5. Unable to detect peak tricuspid regurgitation velocity for pulmonaryartery systolic pressure calculation. 6. Normal right ventricular chamber size, normal systolic function. 7. No pericardial effusion. 8. Compared to the report of 10/23/2016 no significant change hasoccurred. Side by side comparison of images performed. Findings LEFT VENTRICLE:Normal left ventricular chamber size. Normal leftventricular wall thickness. Calculated 2-D linear left ventricularejection fraction 63%. No regional wall motion abnormalities. Grade 1/3left ventricular diastolic dysfunction, consistent with low to normal leftventricular filling pressure. Anomalous muscle bundle in the leftventricular apex RIGHT VENTRICLE:Normal right ventricular chamber size. Normal rightventricular systolic function. Unable to detect peak tricuspidregurgitation velocity for pulmonary artery systolic pressurecalculation. ATRIA:Normal left atrial size. Left atrial volume index 33 ml/m2. Normalright atrial size. CARDIAC VALVES:Trileaflet aortic valve. Normal aortic valve. No aorticvalve regurgitation. Normal mitral valve. Trivial mitral valveregurgitation. Normal pulmonary valve. Normal pulmonary valve systolicvelocities. Trivial pulmonary valve regurgitation. Normal tricuspid valve.Trivial tricuspid valve regurgitation. OTHER ECHO FINDINGS:Normal inferior vena cava size with normal inspiratorycollapse (>50%). Normal mid ascending aorta diameter of 28 mm. Upper limitof normal of the mid ascending aorta, for age, sex and BSA is 37 mm. Noabdominal aortic aneurysm. Normal abdominal aorta Doppler flow pattern. Noatrial level shunt by color flow imaging. No intracardiac mass orthrombus, but the left atrial appendage cannot be visualized adequatelywith transthoracic echo to exclude thrombus in this location. Nopericardial effusion. For the complete report, see the Order-Level Documents. Chapin Brito M.D. CV ECHO PROCEDURES documented in this encounter Visit Diagnoses Diagnosis Ventricular Tachycardia Unspecified (HCC) documented in this encounter
--- OUTSIDE RECORDS SUMMARY | 2023-08-02 08:08 | XMS_ITS | Encounter Summary ---
Author Name Unknown Organization [facility] Address [address] [place] [address] Care Team Providers Care Senior Storage Administrator Name Role Phone Unavailable Primary Care Provider Unavailabl e Reason for Visit * Reason Onset Date Comments Pre-visit Intake 02/25/2023 Encounter Details Date Type Department Care Team (Latest Contact Info) Description 02/25/2023 7:30 AM CDT Clinical Communication Virtual Review in [place], [place] 200 [place], [place] [address] Pre-visit Intake Social History Tobacco Use Types [...] your living situation today? I have a [facility] place to live 01/21/2023 Sex [...]
--- OUTSIDE RECORDS SUMMARY | 2023-08-02 08:08 | XMS_ITS | Encounter Summary ---
Author Name Unknown Organization [facility] Address [address] [place] [address] Care Team Providers Care Awning Hanger Name Role Phone Unavailable Primary Care Provider Unavailabl e Encounter Details Date Type Department Care Team ([facility] st Contact Info) Description 12/31/2022 Orders Only Department of Cardiovascular Medicine in [place], [place] [address] [place] [phone] Yard SupervisorAndrew M.D. Social History Tobacco Use Types Packs/Day Years [...]
--- OUTSIDE RECORDS SUMMARY | 2023-08-02 08:08 | XMS_ITS | Encounter Summary ---
Author Name Unknown Organization [facility] Address [address] [place] [address] Care Team Providers Care Tire Balancer Name Role Phone Unavailable Primary Care Provider Unavailabl e Reason for Visit * Reason Onset Date Comments Follow-up 01/01/2023 Encounter Details Date Type Department Care Team (Latest Contact Info) Description 01/01/2023 Clinical Communication Department of Cardiovascular Diseases in [place], [place] [address] [place] [phone] Luisa Alex R.N. [address] [place] [phone] Follow-up Social History Tobacco Use Types Packs/Day Years [...] AM CDT documented as of this encounter Miscellaneous Notes * Telephone Encounter - Luisa Alex RRafi - 01/01/2023 2:13 PM CDT Information Discussed Patient was given diet instructions for PET cardiac sarcoid scan. PLAN Disposition/Recommendation: Information/Education: patient/caller able to teach back Caller agreeable to plan of care: yes The following references were used: [facility] Cardiac Sarcoid Diet instructions. documented in this encounter Plan of Treatment Not on file documented as of this encounter Visit Diagnoses Not on filedocumented in this encounter
--- OUTSIDE RECORDS SUMMARY | 2023-08-02 08:08 | XMS_ITS | Encounter Summary ---
Author Name Unknown Organization [facility] Address [address] [place] [address] Care Team Providers Care Fire Inspector Name Role Phone Unavailable Primary Care Provider Unavailabl e Reason for Referral * Outpatient (Routine) - Closed Specialty Diagnoses / Procedures Referred By Britney spencer Referred To Contact Diagnoses Ventricular Tachycardia Unspecified (HCC) Procedures Echo Transthoracic (TTE) Chapin Brito M.D. [address] [place] [phone] [facility] Referral ID Status Reason Start Date Expiration Date Visits Re quested Visits Authorized [id number] Closed 12/31/2022 12/31/2023 1 1 * Outpatient (Routine) - Closed Specialty Diagnoses / Procedures Referred By Britney spencer Referred To Contact Diagnoses Ventricular Tachycardia Unspecified (HCC) Procedures DX Chest AP or PA and Lateral 2 Views Chapin Brito M.D. [address] [place] [phone] [facility] Referral ID Status Reason Start Date Expiration Date Visits Re quested Visits Authorized [id number] Closed 12/31/2022 12/31/2023 1 1 * Outpatient (Routine) - Closed Specialty Diagnoses / Procedures Referred By Britney t Referred To Contact Diagnoses Ventricular Tachycardia Unspecified (HCC) Procedures ECG 12 Lead Chapin Brito M.D. [address] [place] [phone] [facility] Referral ID Status Reason Start Date Expiration Date Visits Re quested Visits Authorized [id number] Closed 12/31/2022 12/31/2023 1 1 * Outpatient (Routine) - Closed Specialty Diagnoses / Procedures Referred By Britney spencer Referred To Contact Diagnoses Ventricular Tachycardia Unspecified (HCC) Procedures ECG Heart rhythm monitor (Holter) Chapin Brito M.D. [address] [place] [phone] [facility] Referral ID Status Reason Start Date Expiration Date Visits Re quested Visits Authorized [id number] Closed 12/31/2022 12/31/2023 1 1 Encounter Details Date Type Department Care Team (Late st Contact Info) Description 12/31/2022 Orders Only Department of Cardiovascular Medicine in [place], [place] [address] [place] [phone] Service DispatcherAndrew M.D. Ventricular Tachycardia Unspecified (HCC) (Primary Dx) Social History Tobacco Use Types [...] on file documented as of this encounter Results * HOLTER MONITOR - IN CLINIC FRUIT GRADER OPERATOR (01/05/2023 2:11 PM CDT) SVE Total Beats 3 count HOLTER SENTINEL Holter Pauses 0 count HOLTER SENTINEL Recording Date [id number] HOLTER SENTINEL Bradycardia Runs 0 count HOLTER SENTINEL SVE Percent Beats 0 percent HOLTER SENTINEL Tachycardia Runs 0 count HOLTER SENTINEL VE Max Per Hour 1,847 count HOLTER SENTINEL Analysis Date 20,230,627 HARRIET R SENTINEL SVT Runs 0 count HOLTER SENTINEL VT Longest 21 beats HOLTER SENTINEL Max Heart Rate 117 HARRIET R SENTINEL VE Max Per Hour Time [id number] HOLTER SENTINEL VE Total Beats 14,144 count HARRIET R SENTINEL SVE Max Per Hour 1 count HOLTER SENTINEL VT Max Rate Time [id number] HOLTER SENTINEL AF Count 0 count HOLTER SENTINEL VE Percent Beats 17 percent HOLTER SENTINEL SVE Max Per Hour Time [id number] HOLTER SENTINEL VT Max Rate 147 HOLTER SENTINEL VT Runs 39 count HOLTER SENTINEL Max Heart Rate Time [id number] HOLTER SENTINEL VT Longest Time [id number] HOLTER SENTINEL Mean Heart Rate 63 HOLTER SENTINEL Min Heart Rate Time [id number] HOLTER SENTINEL Min Heart Rate 48 HARRIET R SENTINEL 01/04/2023 3:24 PM CDT Chapin Brito M.D. CV CARDIAC SERVICES PROCEDURES HOLTER SENTINEL NA * (TTE) 2D ECHO DOPPLER COLOR (01/04/2023 [...] Documents. Chapin Brito M.D. CV ECHO PROCEDURES * ECG 12 Lead (01/04/2023 12:50 PM CDT) Ventricular Rate ECG/Min 71 BPM MUSE ND Interval 172 ms MUSE QRSD Interval 82 ms MUSE QT Interval 422 ms MUSE QTC Interval 458 ms MUSE P [place] 13 degrees MUSE R [place] 20 degrees MUSE T Wave [place] 45 degrees MUSE 01/04/2023 12:5 0 PM CDT 01/04/2023 12:53 PM CDT Impressions MUSE - 01/04/2023 12:54 PM CDT Sinus rhythm Premature ventricular complexes Nonspecific ST abnormality When compared with ECG of 22-OCT-2016 09:42, Vent. rate has decreased BY ??44 BPM Reviewed by NOE Rothman Narrative Procedure Note Temitope White M.D. - 01/04/2023 IMPRESSION: Sinus rhythm Premature ventricular complexes Nonspecific ST abnormality When compared with ECG of 22-OCT-2016 09:42, Vent. rate has decreased BY 44 BPM Reviewed by NOE Rothman Chapin Brito M.D. ECG ORDERABLES MUSE NA * Thyroid Function Sterling (01/04/2023 11:20 AM CDT) TSH, Sensitive 2.5 0.3 - 4.2 mIU/L 01/04/2023 12:39 PM CDT DTL Blood (Blood, Venous) 01/04/2023 11:20 AM CDT 01/04/2023 12:04 PM CDT Chapin Brito M.D. LAB BLOOD ADD-ON Performing Organization Address City/[facility]/ZIP Co de Phone Number [facility] [place] [address] [place], [place] [id number] [place] [address] 200 [place] [address] * Sodium (01/04/2023 11:20 AM CDT) Sodium, S 141 135 - 145 mmol/L 01/04/2023 12:39 PM CDT DTL Blood (Blood, Venous) 01/04/2023 11:20 AM CDT 01/04/2023 12:04 PM CDT Chapin Brito M.D. LAB BLOOD ADD-ON Performing Organization Address [facility] Co de Phone Number [facility] [place] 200 [place], [place] [phone] [place] [address] 200 [place] [address] * Potassium (01/04/2023 11:20 AM CDT) Potassium, S 4.5 3.6 - 5.2 mmol/L 01/04/2023 12:39 PM CDT DTL Blood (Blood, Venous) 01/04/2023 11:20 AM CDT 01/04/2023 12:04 PM CDT Chapin Brito M.D. LAB BLOOD ADD-ON Performing Organization Address City/[facility]/ZIP Co de Phone Number [facility] [place] 200 [place], [place] [address] 200 [place] [address] * (ABNORMAL) Lipid Panel (01/04/2023 11:20 AM [...] CDT Chapin Brito M.D. LAB BLOOD ADD-ON [facility] [address] [place] [address], [facility] [address] [place] [address] * Creatinine with Estimated GFR (01/04/2023 11:20 AM CDT) Creatinine 0.99 0.59 - 1.04 mg/dL 01/04/2023 12:39 PM CDT DTL Estimated GFR (eGFR) 69 >=60 mL/min/BSA 01/04/2023 12:39 PM CDT DTL Comment: Estimated GFR calculated using the 2020 CKD_EPI creatinine equation. Blood (Blood, Venous) 01/04/2023 11:20 AM CDT 01/04/2023 12:04 PM CDT Chapin Brito M.D. LAB BLOOD ADD-ON [facility] [place] [address] [place] [address], [facility] DTL [facility] 200 [place] [address] * (ABNORMAL) CBC with Differential, Blood (01/04/2023 [...] CDT Chapin Brito M.D. LAB BLOOD ADD-ON [facility] [place] [address] [place] [address], [facility] DTL [facility] [address] [place] [address] * DX Chest AP or PA and Lateral 2 Views (01/04/2023 10:46 AM CDT) Anatomical Region Laterality Modality Chest, Thoracic RST LOS, Tho racic ARZ LOS, Thoracic FLA LOS N/A Digital Radiography 01/04/2023 11:1 7 AM CDT Impressions 01/04/2023 11:35 AM CDT Compared with 12/03/2015. Lungs are normal. Heart size is normal. Narrative 01/04/2023 11:35 AM CDT EXAM: ??DX CHEST AP OR PA AND LATERAL 2 VIEWS Procedure Note Beni Castrejon M.D. - 01/04/2023 EXAM: DX CHEST AP OR PA AND LATERAL 2 VIEWS IMPRESSION: Compared with 12/03/2015. Lungs are normal. Heart size is normal. Chapin Brito M.D. IMG DIAGNOSTIC IMAGI NG PROCEDURES documented in this encounter Visit Diagnoses Diagnosis Ventricular Tachycardia Unspecified (HCC)- Primary Ventricular Tachycardia Unspecified (HCC) Ventricular Tachycardia Unspecified (HCC) documented in this encounter
--- OUTSIDE RECORDS SUMMARY | 2023-08-02 08:08 | XMS_ITS | Encounter Summary ---
Author Name Unknown Organization [facility] Address [address] [place] [address] Care Team Providers Care Cottage Cheese Maker Name Role Phone Unavailable Primary Care Provider Unavailabl e Reason for Referral * MRI/CAT/PET Scan (Routine) - Closed Specialty Diagnoses / Procedures Referred By Britney spencer Referred To Contact Radiology Diagnoses Ventricular Tachycardia Unspecified (HCC) Beat Premature Ventricular Procedures MR Cardiac without and with IV Contrast Chapin Brito M.D. [address] [place] [address] [facility] Referral ID Status Reason Start Date Expiration Date Visits Re quested Visits Authorized [id number] Closed 12/31/2022 12/31/2023 1 1 Reason for Visit * MRI/CAT/PET Scan (Routine) - Closed Specialty Diagnoses / Procedures Referred By Britney spencer Referred To Contact Radiology Diagnoses Ventricular Tachycardia Unspecified (HCC) Beat Premature Ventricular Procedures MR Cardiac without and with IV Contrast Chapin Brito M.D. [address] [place] [phone] [facility] Referral ID Status Reason Start Date Expiration Date Visits Re quested Visits Authorized [id number] Closed 12/31/2022 12/31/2023 1 1 Encounter Details Date Type Department Care Team (Latest Contact Info) Description 01/01/2023 8:17 AM CDT - 01/01/2023 11:59 PM CDT Hospital Encounter Department of Radiology, [facility], in [place], [place] [address] [place] [address] Chapin Brito M.D. [address] [place] [address] Ventricular Tachycardia Unspecified (HCC); Beat Premature Ventricular Discharge Disposition: Home or [...] Sign Reading Time Taken Comments Blood Pressure - - Pulse - - Temperature - - Respiratory Rate - - Oxygen Saturation - - Inhaled Oxygen Concentration - - Weight 98.1 kg (216 lb 4.3 oz) 01/01/2023 8:30 A M CDT Height 163 cm (5' 4.17) 01/01/2023 8:30 AM CDT Body Mass Index 36.92 01/01/2023 8:30 AM CDT documented in this encounter Medications at Time [...] Procedure Name Priority Date/Time Associated Diagnosis Comments MR CARDIAC WITHOUT AND WITH IV CONTRAST RAD - Routine (most inpatients and all outpatients) 01/01/2023 9:27 AM CDT Ventricular Tachycardia Unspecified (HCC) Beat Premature Ventricular documented in this encounter Results * MR Cardiac without and with IV Contrast (01/01/2023 9:27 AM CDT) Anatomical Region Laterality Modality Cardiac, Cardiovascular RST LOS, Thoracic ARZ LOS, Cardiovascular FLA LOS N/A Magnetic Resonance 01/01/2023 9:09 AM CDT Impressions 01/01/2023 12:48 PM CDT 1. No abnormal late gadolinium enhancement or T2 hyperintensity to suggest inflammation/scarring. 2. Normal biventricular size and systolic function. 3. Mild left atrial enlargement with probable trace mitral valve regurgitation. Narrative 01/01/2023 12:48 PM CDT EXAM: ??MR CARDIAC WITHOUT AND WITH IV CONTRAST COMPARISON: ??None available. FINDINGS: ?? LEFT VENTRICLE: Normal left ventricular chamber size. Normal wall thickness. No regional wall motion abnormalities. Postcontrast images show no first-pass myocardial perfusion abnormalities. Normal myocardial nulling kinetics. Delayed postcontrast images demonstrate no late gadolinium enhancement. RIGHT VENTRICLE: Normal right ventricular chamber size. Normal systolic function. ATRIA: Mildly enlarged left atrium. Normal-sized right atrium. VALVES: Mitral: Probable trace regurgitation (series 3). PERICARDIUM: Normal pericardial thickness. No pericardial effusion. No abnormal pericardial enhancement. ADDITIONAL FINDINGS: ?? Esophageal hiatal hernia. MEASUREMENTS: Patient weight: 98.1 kg Patient height: 163 cm BSA: 2.1 m2 Series 102: LEFT VENTRICLE: LV End Diastolic Volume = 158mL; Index = 75mL/m2 (normal = 50-98) LV End Systolic Volume = 74mL; Index = 35mL/m2 (normal = 17-41) LV Stroke Volume = 84mL; Index = 40mL/m2 (normal = 29-61) LV Ejection Fraction = 53% (normal = 51-71) LV End Diastolic Mass = 98g; Index = 47g/m2 (normal = 28-56) Series 102: RIGHT VENTRICLE: RV End Diastolic Volume = 153mL; Index = 73mL/m2 (normal = 51-103) RV End Systolic Volume = 75mL; Index = 35mL/m2 (normal = 15-51) RV Stroke Volume = 79mL; Index = 37mL/m2 (normal = 29-61) RV Ejection Fraction = 51% (normal = 46-70) T2 Mapping Measurements Scanner: Siemens 1.5T Aera T2 = 43 ms (Septal) (normal) Procedure Note Antoine Lawrence M.D., Ph.D. - 01/01/2023 EXAM: MR CARDIAC WITHOUT AND WITH IV CONTRAST COMPARISON: None available. FINDINGS: LEFT VENTRICLE: Normal left ventricular chamber size. Normal wall thickness. No regionalwall motion abnormalities. Postcontrast images show no first-pass myocardial perfusion abnormalities.Normal myocardial nulling kinetics. Delayed postcontrast images demonstrate no late gadoliniumenhancement. RIGHT VENTRICLE: Normal right ventricular chamber size. Normal systolic function. ATRIA: Mildly enlarged left atrium. Normal-sized right atrium. VALVES: Mitral: Probable trace regurgitation (series 3). PERICARDIUM: Normal pericardial thickness. No pericardial effusion. No abnormalpericardial enhancement. ADDITIONAL FINDINGS: Esophageal hiatal hernia. MEASUREMENTS: Patient weight: 98.1 kg Patient height: 163 cm BSA: 2.1 m2 Series 102: LEFT VENTRICLE: LV End Diastolic Volume = 158mL; Index = 75mL/m2 (normal = 50-98) LV End Systolic Volume = 74mL; Index = 35mL/m2 (normal = 17-41) LV Stroke Volume = 84mL; Index = 40mL/m2 (normal = 29-61) LV Ejection Fraction = 53% (normal = 51-71) LV End Diastolic Mass = 98g; Index = 47g/m2 (normal = 28-56) Series 102: RIGHT VENTRICLE: RV End Diastolic Volume = 153mL; Index = 73mL/m2 (normal = 51-103) RV End Systolic Volume = 75mL; Index = 35mL/m2 (normal = 15-51) RV Stroke Volume = 79mL; Index = 37mL/m2 (normal = 29-61) RV Ejection Fraction = 51% (normal = 46-70) T2 Mapping Measurements Scanner: Siemens 1.5T Aera T2 = 43 ms (Septal) (normal) IMPRESSION: 1. No abnormal late gadolinium enhancement or T2 hyperintensity to suggestinflammation/scarring. 2. Normal biventricular size and systolic function. 3. Mild left atrial enlargement with probable trace mitral valveregurgitation. Chapin THOMASON MRI PROCEDURES documented in this encounter Visit Diagnoses Diagnosis Ventricular Tachycardia Unspecified (HCC) Beat Premature Ventricular documented in this encounter Administered Medications Inactive Administered Medications - up to 3 most recent administrations Medication Order MAR Action Action Date Dose Rate Site gadobutrol injection 0.01-30 mL (GADAVIST) 0.01-30 mL, intravenous, Once in imaging, contrast, Starting on Wed01/01/23 at 0831, For 1 dose, Imaging Protocol Orders, Dose per Radiant Medication Guidelines Intrathecal doses greater than 0.25 mL not recommended. Given 01/01/2023 9:03 AM CDT 20 mL sodium chloride (PF) 0.9 % injection 1-100 mL 1-100 mL, intravenous, Once, On Wed01/01/23 at 0900, For 1 dose, Imaging Protocol Orders Given 01/01/2023 9:03 AM CDT 50 mL documented in this encounter
--- OUTSIDE RECORDS SUMMARY | 2023-08-02 08:08 | XMS_ITS | Encounter Summary ---
Author Name Unknown Organization [facility] Address [address] [place] [address] Care Team Providers Care Ferryboat Ticket Taker Name Role Phone Unavailable Primary Care Provider Unavailabl e Reason for Referral * Outpatient (Routine) - Closed Specialty Diagnoses / Procedures Referred By Contac t Referred To Contact Cardiovascular Disease Diagnoses Beat Premature Ventricular Catherine Murrell M.D. [address] [place] [address] [facility] Referral ID Status Reason Start Date Expiration Date Visits Re quested Visits Authorized [id number] Closed 11/12/2022 11/12/2023 1 1 Encounter Details Date Type Department Care Team (Late st Contact Info) Description 11/12/2022 [facility] [address] [place] [address] Catherine Murrell M.D. [address] [place] [phone] Beat Premature Ventricular (Primary Dx) Social History Tobacco Use Types Packs/Day Years Used Date Smoking Tobacco: Never Nutrition Answer Date Recorded Nutrition: EVOO Fat Source 13 12/23 Nutrition: Servings of Fruits/Vegetables per Day Not on file 12/23/2018 Dental Answer Date Recorded Dental: Regular Dentist 12/24/19 19 Sex and Gender Information Value Date Recorded Sex Assigned at Female 01/21/2023 9:13 AM CDT Gender Identity Female 01/21/2023 9:13 AM CDT Sexual Orientation Straight 01/21/2023 9: 13 AM CDT documented as of this encounter Plan of Treatment Scheduled Referrals Name Type Priority Associated Diagnoses Order Schedule Cardiovascular Diseases Referral Outpatient Referral Routine Beat Premature Ventricular Expected: 11/12/2022 (Approximate), Expires: 02/13/2024 documented as of this encounter Visit Diagnoses Diagnosis Beat Premature Ventricular- Primary documented in this encounter
--- OUTSIDE RECORDS SUMMARY | 2023-08-02 08:08 | XMS_ITS | Encounter Summary ---
Author Name Unknown Organization [facility] Address [address] [place] [address] Care Team Providers Care Graduate Teacher Education Name Role Phone Unavailable Primary Care Provider Unavailabl e Reason for Referral * Outpatient (Routine) - Closed Specialty Diagnoses / Procedures Referred By Phillipac t Referred To Contact Diagnoses Ventricular Tachycardia Unspecified (HCC) Procedures ECG Heart rhythm monitor (Holter) Chapin Briot M.D. [address] [place] [phone] [facility] Referral ID Status Reason Start Date Expiration Date Visits Re quested Visits Authorized [id number] Closed 12/31/2022 12/31/2023 1 1 Reason for Visit * Outpatient (Routine) - Closed Specialty Diagnoses / Procedures Referred By Britney spencer Referred To Contact Diagnoses Ventricular Tachycardia Unspecified (HCC) Procedures ECG Heart rhythm monitor (Holter) Chapin Brito M.D. [address] [place] [phone] [facility] Referral ID Status Reason Start Date Expiration Date Visits Re quested Visits Authorized [id number] Closed 12/31/2022 12/31/2023 1 1 Encounter Details Date Type Department Care Team (Latest Contact Info) Description 01/04/2023 2:17 PM CDT - 01/04/2023 11:59 PM CDT Hospital Encounter Department of Cardiovascular Diseases in [place], [place] [address] [place] [address] Chapin Brito M.D. 200 [place] [address] Ventricular Tachycardia Unspecified (HCC) Discharge Disposition: Home [...] Diagnosis Comments HOLTER MONITOR - IN CLINIC BOX [facility] Routine 01/05/2023 2:11 PM CDT Ventricular Tachycardia Unspecified (HCC) documented in this encounter Results * HOLTER MONITOR - IN CLINIC BOX [facility] (01/05/2023 2:11 PM CDT) SVE Total Beats 3 count HOLTER SENTINEL Holter Pauses 0 count HOLTER SENTINEL Recording Date [id number] HOLTER SENTINEL Bradycardia Runs 0 count HOLTER SENTINEL SVE Percent Beats 0 percent HOLTER SENTINEL Tachycardia Runs 0 count HOLTER SENTINEL VE Max Per Hour 1,847 count HOLTER SENTINEL Analysis Date 20,230,627 HARRIET R SENTINEL SVT Runs 0 count HOLTER SENTINEL VT Longest 21 beats HOLTER SENTINEL Max Heart Rate 117 HARRIET R SENTINEL VE Max Per Hour Time [id number] HOLTER SENTINEL VE Total Beats 14,144 count HARRIET R SENTINEL SVE Max Per Hour 1 count HOLTER SENTINEL VT Max Rate Time 62355723162735 HOLTER SENTINEL AF Count 0 count HOLTER SENTINEL VE Percent Beats 17 percent HOLTER SENTINEL SVE Max Per Hour Time 38690885728449 HOLTER SENTINEL VT Max Rate 147 HOLTER SENTINEL VT Runs 39 count HOLTER SENTINEL Max Heart Rate Time 30982062890521 HOLTER SENTINEL VT Longest Time 68497273139239 HOLTER SENTINEL Mean Heart Rate 63 HOLTER SENTINEL Min Heart Rate Time 69171077300074 HOLTER SENTINEL Min Heart Rate 48 HARRIET R SENTINEL 01/04/2023 3:24 PM CDT Chapin Brito M.D. CV CARDIAC SERVICES PROCEDURES HOLTER SENTINEL NA documented in this encounter Visit Diagnoses Diagnosis Ventricular Tachycardia Unspecified (HCC) documented in this encounter
--- OUTSIDE RECORDS SUMMARY | 2023-08-02 08:08 | XMS_ITS | Encounter Summary ---
Author Name Unknown Organization [facility] Address [address] [place] [address] Care Team Providers Care Chart Changer Name Role Phone Unavailable Primary Care Provider Unavailabl e Reason for Referral * Outpatient (Routine) - Authorized Specialty Diagnoses / Procedures Referred By Britney spencer Referred To Contact Diagnoses Ventricular Tachycardia Unspecified (HCC) Beat Premature Ventricular Procedures PET CT Sarcoid Trunk Chapin Brito M.D. [address] [place] [phone] [facility] Referral ID Status Reason Start Date Expiration Date V isits Requested Visits Authorized [id number] Authorized 12/31/2022 12/31/2023 6 6 * Outpatient (Routine) - Closed Specialty Diagnoses / Procedures Referred By Britney spencer Referred To Contact Diagnoses Ventricular Tachycardia Unspecified (HCC) Beat Premature Ventricular Procedures PET CT Cardiac Sarcoid Chapin Brito M.D. [address] [place] [phone] [facility] Referral ID Status Reason Start Date Expiration Date Visits Re quested Visits Authorized [id number] Closed 12/31/2022 12/31/2023 1 1 * MRI/CAT/PET Scan (Routine) - Closed Specialty Diagnoses / Procedures Referred By Britney spencer Referred To Contact Radiology Diagnoses Ventricular Tachycardia Unspecified (HCC) Beat Premature Ventricular Procedures MR Cardiac without and with IV Contrast Chapin Brito M.D. [address] [place] [address] [facility] Referral ID Status Reason Start Date Expiration Date Visits Re quested Visits Authorized [id number] Closed 12/31/2022 12/31/2023 1 1 Reason for Visit * Reason Onset Date Comments [phone] Encounter Details Date Type Department Care Team (Latest Contact Info) Description 12/16/2022 Clinical Communication Department of Cardiovascular Medicine in [place], [place] [address] [place] [phone] Personal CarerAndrew M.D. [phone] Social History Tobacco Use Types Packs/Day Years [...] encounter Miscellaneous Notes * Telephone Encounter - Brigitte Bey M.SChandler., R.N. - 01/01/2023 1:28 PM CDT Spoke with Dr. Huizar yesterday as there had been a request for her to see this patient as an extra. Upon review, Dr. Huizar had requested that if the cardiac MR showed a reduced ejection fraction (less than 50%), scarring/inflammation, or other concerning to contact another [facility] physician (as she would be away from the clinic) to consider a possible admission. If EF was above 50% and no abnormalities were present then she felt it was okay to leave the consult as scheduled on 01/21. Based on the MRI result report, it looks like the appointment can remain on 01/21 as LVEF is 53%, RVEF is 51%, no late gadolinium enhancement was present, no scarring or inflammation was present, normal wall thickness and size was present within the ventricles. * Addendum Note - Brigitte Bey M.S.N., R.N. - 12/31/2022 3:23 PM CDT Addended by: BRIGITTE BEY on: 12/31/2022 03:23 PM Modules accepted: Orders * Telephone Encounter - Lina Javier - 12/31/2022 1:47 PM CDT [place] faxed a Holter needing urgent review for runs if VT * Telephone Encounter - Ophelia Palencia RRafi - 12/16/2022 2:08 PM CDT Has had no recent testing to show PVC occurrence. Would recommend her PCP set up a Holter monitor to document symptom correlation and frequency of PVCs. * Telephone Encounter - Eric Barron - 12/16/2022 11:27 AM CDT SUBJECTIVE CHIEF COMPLAINT / REASON FOR CALL External referral (Catherine Murrell, [facility] [phone]) Triage/Record Review Internal/external: external referral Questions to be answered: premature arrhthymias Requested date: avail Additional comments: Patient is being referred from her PCP for her concerns. She has not had any recent testing done. documented in this encounter Plan of Treatment Not on file documented as of this encounter Results * PET CT Sarcoid Trunk (01/05/2023 4:07 PM CDT) Anatomical Region Laterality Modality Body, Nuclear Medicine PET R ST LOS, PET ARZ LOS, Nuclear Medicine PET FLA LOS, Nuclear Medicine N/A Positron Emission Tomography (PET), Positron Emission Tomography (PET) 01/05/2023 8:02 PM CDT Impressions 01/05/2023 8:13 PM CDT 1. No FDG PET/CT evidence of extracardiac sarcoidosis involvement. 2. For cardiac portion of this study, please see the separate report. Narrative 01/05/2023 8:13 PM CDT EXAM: ??PET CT SARCOID TRUNK Serum glucose at time of F-18 FDG injection was 103 mg/dL. Patient followed myocardial activity suppressing high-fat diet followed by standard dietary/fasting requirements for this exam. RADIOPHARMACEUTICAL/MEDS: Route: intravenous fludeoxyglucose F 18 injection LONG TERM (FDG F-18),15.48 millicurie TECHNIQUE: ??F-18 FDG PET/CT scan was performed from the orbits through the thighs with low dose, non-contrast, free-breathing CT images for attenuation correction and anatomic localization (AC/AL), with imaging beginning at approximately 60 minutes after radiotracer injection. COMPARISON: ??None. INDICATION: ??Ventricular tachycardia. Rule out sarcoidosis. Initial treatment strategy. The patient reports no recent vaccinations. FINDINGS: ??No FDG avid lymphadenopathy. Normal size spleen without abnormal FDG uptake. Diffuse mild FDG uptake in the bone marrow, likely representing reactive marrow. No focal FDG avid osseous lesion to suggest sarcoidosis involvement. Focal increased FDG uptake in the hiatal hernia (image 104), favored to represent reactive/inflammatory activity. Minimally increased FDG uptake along the wall of the aortic arch, favored to represent inflammatory/reactive activity. Incidental significant findings on low-dose, noncontrast CT: Colonic diverticulosis without evidence of diverticulitis. Degenerative change of the spine and hips. Procedure Note Alejandro Lieberman M.D., Ph.D. - 01/05/2023 EXAM: PET CT SARCOID TRUNK Serum glucose at time of F-18 FDG injection was 103 mg/dL. Patientfollowed myocardial activity suppressing high-fat diet followed by standard dietary/fastingrequirements for this exam. RADIOPHARMACEUTICAL/MEDS: Route: intravenous fludeoxyglucose F 18 injection LONG TERM (FDG F-18),15.48 millicurie TECHNIQUE: F-18 FDG PET/CT scan was performed from the orbits through thethighs with low dose, non-contrast, free-breathing CT images for attenuation correction andanatomic localization (AC/AL), with imaging beginning at approximately 60 minutes after radiotracerinjection. COMPARISON: None. INDICATION: Ventricular tachycardia. Rule out sarcoidosis. Initialtreatment strategy. The patient reports no recent vaccinations. FINDINGS: No FDG avid lymphadenopathy. Normal size spleen withoutabnormal FDG uptake. Diffuse mild FDG uptake in the bone marrow, likely representing reactivemarrow. No focal FDG avid osseous lesion to suggest sarcoidosis involvement. Focal increased FDG uptake in the hiatal hernia (image 104), favored torepresent reactive/inflammatory activity. Minimally increased FDG uptake along the wall of the aortic arch, favoredto represent inflammatory/reactive activity. Incidental significant findings on low-dose, noncontrast CT: Colonicdiverticulosis without evidence of diverticulitis. Degenerative change of the spine and hips. IMPRESSION: 1. No FDG PET/CT evidence of extracardiac sarcoidosis involvement. 2. For cardiac portion of this study, please see the separate report. Chapin KOENIG PROCEDURES * PET CT Cardiac Sarcoid (01/05/2023 3:42 PM CDT) 01/05/2023 1:17 PM CDT Narrative [facility] CV MERGE - 01/05/2023 5:01 PM CDT See PDF For Result Procedure Note Chico Hicks M.D. - 01/05/2023 See PDF For Result Chapin Kapa M.D. IMG NM PROCEDURES [facility] CV MERGE NA * MR Cardiac without and with IV [...] Diagnoses Diagnosis Ventricular Tachycardia Unspecified (HCC)- Primary Beat Premature Ventricular Ventricular Tachycardia Unspecified (HCC) Beat Premature Ventricular Ventricular Tachycardia Unspecified (HCC) Beat Premature Ventricular Ventricular Tachycardia Unspecified (HCC) Beat Premature Ventricular documented in this encounter
--- OUTSIDE RECORDS SUMMARY | 2023-08-02 08:08 | XMS_ITS | Encounter Summary ---
Author Name Unknown Organization [facility] Address [address] [place] [address] Care Team Providers Care Online Advertising Manager Name Role Phone Unavailable Primary Care Provider Unavailabl e Reason for Referral * Outpatient (Routine) - Closed Specialty Diagnoses / Procedures Referred By Contac t Referred To Contact Diagnoses Ventricular Tachycardia Unspecified (HCC) Procedures DX Chest AP or PA and Lateral 2 Views Chapin Brito M.D. [address] [place] [phone] [facility] Referral ID Status Reason Start Date Expiration Date Visits Re quested Visits Authorized [id number] Closed 12/31/2022 12/31/2023 1 1 Reason for Visit * Outpatient (Routine) - Closed Specialty Diagnoses / Procedures Referred By Britney spencer Referred To Contact Diagnoses Ventricular Tachycardia Unspecified (HCC) Procedures DX Chest AP or PA and Lateral 2 Views Chapin Brito M.D. [address] [place] [phone] [facility] Referral ID Status Reason Start Date Expiration Date Visits Re quested Visits Authorized [id number] Closed 12/31/2022 12/31/2023 1 1 Encounter Details Date Type Department Care Team (Latest Contact Info) Description 01/04/2023 10:30 AM CDT - 01/04/2023 10:59 AM CDT Hospital Encounter Department of Radiology, [facility], in [place], [place] [address] [place] [address] Chapin Brito M.D. [address] [place] [address] Ventricular Tachycardia Unspecified (HCC) Discharge Disposition: Home [...] Procedure Name Priority Date/Time Associated Diagnosis Comments DX CHEST AP OR PA AND LATERAL 2 VIEWS RAD - Routine (most inpatients and all outpatients) 01/04/2023 10:46 AM CDT Ventricular Tachycardia Unspecified (HCC) documented in this encounter Results * DX Chest AP or PA and [...] are normal. Heart size is normal. Chapin THOMASON DIAGNOSTIC IMAGI NG PROCEDURES documented in this encounter Visit Diagnoses Diagnosis Ventricular Tachycardia Unspecified (HCC) documented in this encounter
--- OUTSIDE RECORDS SUMMARY | 2023-08-02 08:08 | XMS_ITS | Encounter Summary ---
Author Name Unknown Organization [facility] Address [address] [place] [address] Care Team Providers Care Manufacturing Electrician Name Role Phone Unavailable Primary Care Provider Unavailabl e Reason for Referral * Outpatient (Routine) - Authorized Specialty Diagnoses / Procedures Referred By Britney spencer Referred To Contact Diagnoses Ventricular Tachycardia Unspecified (HCC) Beat Premature Ventricular Procedures PET CT Sarcoid Trunk Chapin Brito M.D. [address] [place] [phone] [facility] Referral ID Status Reason Start Date Expiration Date V isits Requested Visits Authorized [id number] Authorized 12/31/2022 12/31/2023 6 6 Reason for Visit * Outpatient (Routine) - Authorized Specialty Diagnoses / Procedures Referred By Britney spencer Referred To Contact Diagnoses Ventricular Tachycardia Unspecified (HCC) Beat Premature Ventricular Procedures PET CT Sarcoid Trunk Chapin Brito M.D. [address] [place] [phone] [facility] Referral ID Status Reason Start Date Expiration Date V isits Requested Visits Authorized [id number] Authorized 12/31/2022 12/31/2023 6 6 Encounter Details Date Type Department Care Team (Latest Contact Info) Description 01/05/2023 1:17 PM CDT - 01/05/2023 11:59 PM CDT Hospital Encounter Department of Radiology, [facility] in [place], [place] [address] [place] [address] Chapin Brito M.D. [address] [place] [address] Ventricular Tachycardia Unspecified (HCC); Beat Premature Ventricular [...] Procedure Name Priority Date/Time Associated Diagnosis Comments PET CT TRUNK RAD - Routine (most inpatients and all outpatients) 01/05/2023 4:07 PM CDT Ventricular Tachycardia Unspecified (HCC) Beat Premature Ventricular documented in this encounter Results * PET CT Sarcoid [...] RADIOPHARMACEUTICAL/MEDS: Route: intravenous fludeoxyglucose F 18 injection NURSING HOME (FDG F-18),15.48 millicurie TECHNIQUE: ??F-18 FDG PET/CT [...] RADIOPHARMACEUTICAL/MEDS: Route: intravenous fludeoxyglucose F 18 injection NURSING HOME (FDG F-18),15.48 millicurie TECHNIQUE: F-18 FDG PET/CT [...] study, please see the separate report. Chapin THOMASON NM PROCEDURES documented in this encounter Visit Diagnoses Diagnosis Ventricular Tachycardia Unspecified (HCC) Beat Premature Ventricular documented in this encounter
--- OUTSIDE RECORDS SUMMARY | 2023-08-02 08:08 | XMS_ITS | Encounter Summary ---
Author Name Unknown Organization [facility] Address [address] [place] [address] Care Team Providers Care Court Monitor Name Role Phone Unavailable Primary Care Provider Unavailabl e Reason for Visit * Outpatient (Routine) - Closed Specialty Diagnoses / Procedures Referred By Contaddis t Referred To Contact Cardiovascular Disease Diagnoses Beat Premature Ventricular Catherine Murrell M.D. [address] [place] [address] [facility] Referral ID Status Reason Start Date Expiration Date Visits Re quested Visits Authorized [id number] Closed 11/12/2022 11/12/2023 1 1 Encounter Details Date Type Department Care Team (Latest Contact Info) Description 01/21/2023 1:00 PM CDT Comprehensive Visit Department of Cardiovascular Medicine in [place], [place] [address] [place] [address] Edie Briceno M.D. [address] [place] [phone] Beat Premature Ventricular Social History Tobacco Use Types Packs/Day Years Used Date Smoking Tobacco: Never Smokeless Tobacco: Never Alcohol Use Standard Drinks/Week [...] your living situation today? I have a [facility] place to live 01/21/2023 Sex and Gender Information Value Date Recorded Sex Assigned at Female 01/21/2023 9:13 AM CDT Gender Identity Female 01/21/2023 9:13 AM CDT Sexual Orientation Straight 01/21/2023 9: 13 AM CDT documented as of this encounter Last Filed Vital Signs Vital Sign Reading Time Taken Comments Blood Pressure 124/77 01/21/2023 12:51 PM CDT Pulse 66 01/21/2023 12:51 PM CDT Temperature - - Respiratory Rate - - Oxygen Saturation - - Inhaled Oxygen Concentration - - Weight 97.3 kg (214 lb 8.1 oz) 01/21/2023 12:51 PM CDT Height 162.9 cm (5' 4.13) 01/21/2023 12:51 PM C DT Body Mass Index 36.67 01/21/2023 12:51 PM CDT documented in this encounter Consult Notes * Edie Briceno M.D. - 01/21/2023 1:00 PM CDT ELECTROPHYSIOLOGY CONSULTATION REFERRAL SOURCE: Catherine Murrell M.D. REASON FOR CONSULT: No chief complaint on file. HISTORY OF PRESENT ILLNESS: Ms. Hilda Hager is a 52 y.o. female who presents to the [facility] clinic for evaluation of PVCs. I met and examined Mrs. Hager this afternoon. She was accompanied by her . Mrs. Hager has had a longstanding history of PVCs. Her previous evaluation was in 2016. She had frequent PVCs associated with palpitations and lightheadedness. She underwent cardiac evaluation. Initially, she has mildly reduced cardiac function with ejection fraction is in the 45-50% range. She was treated with a beta-maria del carmen and lisinopril. These medications were not very effective in suppressing PVCs although she had normalization of the ejection fraction. Her overall symptoms also improved. Both medications were tapered and discontinued. After 2017, patient did reasonably well. Patient believe she had some PVCs although there were not disruptive. She began to have symptoms in the last 2-3 years. More recently, her symptoms have increased with palpitations, lightheadedness, and chest tightness. Especially with the increase with activ ities, she feels the palpitations get worse. She has not had any syncope. She has undergone a number of diagnostic evaluation. Her echocardiogram showed normal cardiac function and structures. Ejection fraction is 63%. The echo is unchanged from October of 2016. MRI demonstrated no focal delayed enhancement. The PET scan showed no evidence of infiltrative cardiomyopathy. She had a 12 lead Holter monitor. The PVC burden was 17% with salvos of nonsustained ventricular tachycardia at a rate of approximately 130-140 beats per minute lasting up to 21 beats. Patient's symptoms of palpitations and lightheadedness were correlated to PVCs and nonsustained ventricular tachycardia. Patient denies any other significant cardiac history. She consumes approximately 2 cups of coffee and 2 drinks per day. She is not a smoker. She feels these PVCs fluctuate according to her stress level. PAST MEDICAL HISTORY: Past Medical History: Diagnosis Date Depressive Disorder 2010 Gastroesophageal Reflux Disease NOS Hyperlipidemia always MEDICATIONS: Current Outpatient Medications: famotidine (PEPCID) 20 mg tablet, Take 20 mg by mouth as needed., Disp: , Rfl: rosuvastatin (CRESTOR) 5 mg tablet, Take 5 mg by mouth daily., Disp: , Rfl: Vitamin D3 50 mcg (2,000 unit) tablet, Take 50 mcg by mouth daily., Disp: , Rfl: sertraline (ZOLOFT) 25 mg tablet, Take 25 mg by mouth daily., Disp: , Rfl: FAMILY HISTORY: Family History Problem Relation Age [...] Sister Obesity Father's Sister Obesity Father's Sister SOCIAL HISTORY: Social History Socioeconomic History Marital status: Spouse name: Not on file Number of children: Not on file Years of education: Not on file Highest education level: Not on file Occupational History Not on file Tobacco Use Smoking status: Never Smokeless tobacco: Never Substance and Sexual Activity Alcohol use: Yes Alcohol/week: 14.0 standard drinks of alcohol Types: 14 Glasses of wine per week Drug use: Never Sexual activity: Not Currently Partners: Male control/protection: Pill, Post-menopausal, Vasectomy Comment: pill for many years and had vasectomy Other Topics Concern Not on file Social History Narrative Not on file Social Determinants of Health Financial Resource Strain: Low Risk (01/21/2023) Overall Financial Resource Strain (CARDIA) Difficulty of Paying Living Expenses: Not hard at all Food Insecurity: No Food Insecurity (01/21/2023) Hunger Vital Sign Worried About Running Out of Food in the Last Year: Never true Ran Out of Food in the Last Year: Never true Transportation Needs: No Transportation Needs (01/21/2023) PRAPARE - Transportation Lack of Transportation (Medical): No Lack of Transportation (Non-Medical): No Physical Activity: Sufficiently Active (01/21/2023) Exercise Vital Sign Days of Exercise per Week: 7 days Minutes of Exercise per Session: 40 min Intimate Partner Violence: Not At Risk (01/21/2023) Humiliation, Afraid, Rape, and Kick questionnaire Fear of Current or Ex-Partner: No Emotionally Abused: No Physically Abused: No Sexually Abused: No Housing Stability: Low Risk (01/21/2023) Housing Stability Housing: Living Situation: I have a steady place to live REVIEW OF SYSTEMS: A 12-point review of systems was negative except as per History of Present Illness. VITALS: Blood Pressure: 124/77 Height: 162.9 cm Weight: 97.3 kg BMI (Calculated): 36.7 kg/m?? PHYSICAL EXAM: General: Not in any acute distress Neck: JVP 6-8 cm H2O. There was no carotid bruit Heart: S1-S2 without any murmurs. During auscultation, there were no PVCs today Lungs: clear on auscultation Abdomen: no organomegaly Extremities: no edema LABS Lab Results Component Value Date WBC 7.4 01/04/2023 HGB 13.8 01/04/2023 HCT 43.4 01/04/2023 MCV 87.0 01/04/2023 PLT 262 01/04/2023 Lab Results Component Value Date NA 141 01/04/2023 Lab Results Component Value Date CREATININE 0.99 01/04/2023 Lab Results Component Value Date TSH 2.5 01/04/2023 IMAGING: ECG: a 12 lead ECG from January 04 showed sinus rhythm with a 2 PVC morphologies. One Femara morphology is right bundle branch with inferior axes suggestive of left ventricular outflow track PVC. A 2nd PVC was captured on selected lead. This appear to be left bundle branch block with indeterminate axis. Holter: The Holter monitor was performed on January 04. This demonstrated PVC burden of 17%. The patient had nonsustained ventricular tachycardia up to 21 beats at a rate of approximately 130-140 beats per minute. The onset of PVCs was late coupling suggestive of a triggered mechanism. There were 2 morphologies. One morphology is typical for RV OT PVC with left bundle branch block, inferior axis, with R-wave transition in V3. A 2nd PVC morphology was left bundle with R-wave transition in V5 to V6 with a superior axes. The origin of this PVC is more apical, could be related to a moderator band. Echocardiogram: Echo Transthoracic (TTE) Result Date: 01/04/2023 For the complete report, see the [...] Side by side comparison of images performed. Assessment / Plan: #1 Beat Premature Ventricular Patient has frequent and symptomatic PVCs and nonsustained ventricular tachycardia. Extensive evaluation has been performed which demonstrated no significant underlying heart disease. Echo demonstrated normal cardiac function and structures. MRI showed no delayed enhancement. The PET scan showed no evidence of infiltrative cardiomyopathy. From the 12 lead ECG and the 12 lead Holter monitor, patient appears to have 3 different PVC morphologies. The predominant PVC morphology and salvos of nonsustained ventricular tachycardia appear to be typical for RV OT PVC. A 2nd LBBB morphology could be from the moderate band. The right bundle branch morphology PVC recorded on the 12 lead ECG was not documented on the 12 lead Holter monitor. 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 I reviewed these observations with Mrs. Hager and her extensively. I reassured her that these PVCs are benign in the absence of any underlying heart disease. Patient has significant symptoms. Treatment is warranted. We reviewed the options of lifestyle modification with a trial of pharmacological therapy such as a beta-maria del carmen or a class 1 C medication. We spent some time to talk about PVC ablation, mapping, and targeting the predominant PVC and other PVCs if occurring during the procedure. Patient asked many questions. I answered these questions to their satisfaction. After an extensive discussion with a shared decision, patient would like to proceed with PVC ablation. This is quite reasonable. Patient would like to proceed HENRIQUE. I will put in a case request. We did discussed the ablation will be performed under conscious sedation for comfort. Patient may be awake during someportions of the study. documented in this encounter Plan of Treatment Not on file documented as of this encounter Visit Diagnoses Diagnosis Beat Premature Ventricular documented in this encounter
--- OUTSIDE RECORDS SUMMARY | 2023-08-02 08:08 | XMS_ITS | Encounter Summary ---
Author Name Unknown Organization [facility] Address [address] [place] [address] Care Team Providers Care Orchard Manager Name Role Phone Elsewhere, Pcp Primary Care Provider Unavailabl e Reason for Visit * Appointment Request (Routine) - Closed Specialty Diagnoses / Procedures Referred By Contac t Referred To Contact Cardiovascular Disease Referral ID Status Reason Start Date Expiration Date Visits Re quested Visits Authorized [id number] Closed 02/01/2023 02/01/2024 1 1 Encounter Details Date Type Department Care Team (Latest Contact Info) Description 02/26/2023 2:00 PM CDT Office Visit Department of Cardiovascular Medicine in [place], [place] [address] [place] [phone] Julito Bhat M.B., B.Ch., B.A.O. [address] [place] [phone] Beat Premature Ventricular (Primary Dx) Social History [...] your living situation today? I have a [facility] place to live 01/21/2023 Sex and Gender Information Value Date Recorded Sex Assigned at Female 01/21/2023 9:13 AM CDT Gender Identity Female 01/21/2023 9:13 AM CDT Sexual Orientation Straight 01/21/2023 9: 13 AM CDT documented as of this encounter Last Filed Vital Signs Vital Sign Reading Time Taken Comments Blood Pressure 129/89 02/26/2023 1:46 PM CDT Pulse 79 02/26/2023 1:46 PM CDT Temperature - - Respiratory Rate - - Oxygen Saturation - - Inhaled Oxygen Concentration - - Weight - - Height - - Body Mass Index - - documented in this encounter Consult Notes * Julito Bhat M.B., B.Simba., B.A.Lorraine., M.B. - 02/26/2023 2:00 PM CDT Images from the original note were not included. [facility] CL[facility]IC NOTE CHIEF COMPLAINT/REASON FOR VISIT Pre ablation visit SUBJECTIVE HISTORY OF PRESENT ILLNESS Hilda Hager is a 52 y.o. female for a pre ablation visit today. Pertinent cardiovascular history includes: 1. PVCs 2. Hyperlipidemia Mrs. Hager seen by my colleague Dr. Briceno in January of this year. She has a longstanding history of PVCs previously evaluated in 2016. These PVCs are associated with palpitations and lightheadedness. Initial ejection fraction was mildly reduced with an ejection fraction of 45-50%. She was subsequently treated with beta-maria del carmen and lisinopril, which did not make significant change to a PVC burden but did normalize her ejection fraction. Overall her symptoms improved in her medications were discontinued. More recently she has had increased burden of PVCs and increase in symptoms. Her last evaluation there was discussion about consideration of medications versus ablation. She has chosen an ablation strategy. She otherwise feels well she is ready for an ablation on Wednesday. The following portions of the patient's history were reviewed and updated as appropriate: allergies, current medications, family history, medical history, social history, surgical history, and problem list. PAST MEDICAL HISTORY: Past Medical History: Diagnosis Date Depressive Disorder 2010 Gastroesophageal Reflux Disease NOS Hyperlipidemia always PAST SURGICAL HISTORY: Past Surgical History: Procedure Laterality Date APPENDECTOMY SECTION 09/26/2002 baby was breach, since had a MEDICATIONS: Current Medications: famotidine (PEPCID) 20 mg [...] negative except as stated in the HPI. MEDICATIONS Current Medications: famotidine (PEPCID) 20 mg tablet, Take 20 mg by mouth as needed. rosuvastatin (CRESTOR) 5 mg tablet, Take 5 mg by mouth daily. sertraline (ZOLOFT) 25 mg tablet, Take 25 mg by mouth daily. Vitamin D3 50 mcg (2,000 unit) tablet, Take 50 mcg by mouth daily. ALLERGIES Allergies Allergen Reactions Penicillins Itching and Rash OBJECTIVE VITALS Vitals: 02/26/23 1346 BP: 129/89 BP Location: Left arm Patient Position: Sitting Cuff Size: Regular Pulse: 79 There is no height or weight on file to calculate BMI. PHYSICAL EXAMINATION General: Comfortable Psych: Oriented to person, place, and time. Answers questions appropriately. Eyes: Sclerae anicteric, no conjunctival pallor. No xanthelasma. Heart: S1-S2 No additional sounds murmurs or rubs, PVCs present Lungs: Clear Abdomen: Soft LABS Hemoglobin 14.0, platelet count 271. Electrolytes within normal limits. Creatinine 0.88. ECG PVC RBRI, anterior mitral annulus HOLTER January 01 - PVC burden of 22%. The patient had nonsustained ventricular tachycardia up to 21 beats ginger rate of approximately 130-140 beats per minute ECHO 1. Normal left ventricular chamber size, no regional wall motion abnormalities, calculated 2-D linear ejection fraction 63%. 2. 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 3. Grade 1/3 left ventricular diastolic dysfunction, consistent with low to normal left ventricularfilling pressure. 4. No hemodynamically significant valvular heart disease. 5. Unable to detect peak tricuspid regurgitation velocity for pulmonary artery systolic pressure calculation. 6. Normal right ventricular chamber size, normal systolic function. 7. No pericardial effusion. 8. Compared to the report of 10/23/2016 no significant change has occurred. Side by side comparisonof images performed. CARDIAC MRI 1. No abnormal late gadolinium enhancement or T2 hyperintensity to suggest inflammation/scarring. 2. Normal biventricular size and systolic function. 3. Mild left atrial enlargement with probable trace mitral valve regurgitation. CARDIAC PET Negative for sarcoid. ASSESSMENT / PLAN #1 Symptomatic left ventricular outflow tract PVCs, with a previous history of nonischemic cardiomyopathy In summary Mrs. Hager presents for a pre ablation visit. She has frequent symptomatic PVCs and a some runs of nonsustained ventricular tachycardia. She has had a thorough evaluation which revealed a structurally normal heart. There is no evidence of sarcoid. I discussed the ablation in detail with her today. I discussed the risks and benefits of proceedingwith ablation. I discussed that the procedure carries a 1- 3% risk of complications including, but not limited to: stroke, valve damage, cardiac tamponade or major vascular complications at catheter insertion sites or it very rare circumstances . RECOMMENDATIONS: We will proceed with cardiac ablation on Wednesday. Olivia Gan, Jame.Simba., B.A.O., M.B. 02/26/2023 documented in this encounter Plan of Treatment Not on file documented as of this encounter Visit Diagnoses Diagnosis Beat Premature Ventricular- Primary documented in this encounter Care Teams Orchard Manager Relationship Specialty Start Date End Date Elsewhere, Pcp PCP - General Internal Medicine 02/26/23 documented as of this encounter
--- OUTSIDE RECORDS SUMMARY | 2023-08-02 08:08 | XMS_ITS | Encounter Summary ---
Author Name Unknown Organization [facility] Address [address] [place] [address] Care Team Providers Care Shotblaster Name Role Phone Unavailable Primary Care Provider Unavailabl e Reason for Referral * Outpatient (Routine) - Closed Specialty Diagnoses / Procedures Referred By Britney spencer Referred To Contact Diagnoses Ventricular Tachycardia Unspecified (HCC) Beat Premature Ventricular Procedures PET CT Cardiac Sarcoid Chapin Brito M.D. [address] [place] [phone] [facility] Referral ID Status Reason Start Date Expiration Date Visits Re quested Visits Authorized [id number] Closed 12/31/2022 12/31/2023 1 1 Reason for Visit * Outpatient (Routine) - Closed Specialty Diagnoses / Procedures Referred By Britney spencer Referred To Contact Diagnoses Ventricular Tachycardia Unspecified (HCC) Beat Premature Ventricular Procedures PET CT Cardiac Sarcoid Chapin Brito M.D. [address] [place] [phone] [facility] Referral ID Status Reason Start Date Expiration Date Visits Re quested Visits Authorized [id number] Closed 12/31/2022 12/31/2023 1 1 Encounter Details Date Type Department Care Team (Latest Contact Info) Description 01/05/2023 1:15 PM CDT - 01/05/2023 1:16 PM CDT Hospital Encounter Department of Radiology, [facility], in [place], [place] [address] [place] [address] Chapin Brito M.D. [address] [place] [address] Ventricular Tachycardia Unspecified (HCC); Beat Premature Ventricular [...] Priority Date/Time Associated Diagnosis Comments PET CT CARDIAC SARCOID RAD - Routine (most inpatients and all outpatients) 01/05/2023 3:42 PM CDT Ventricular Tachycardia Unspecified (HCC) Beat Premature Ventricular documented in this encounter Results * PET CT Cardiac Sarcoid (01/05/2023 3:42 PM CDT) 01/05/2023 1:17 PM CDT Narrative [facility] CV MERGE - 01/05/2023 5:01 PM CDT See PDF For Result Procedure Note Chico Hicks M.D. - 01/05/2023 See PDF For Result Chapin KOENIG PROCEDURES [facility] CV MERGE NA documented in this encounter Visit Diagnoses Diagnosis Ventricular Tachycardia Unspecified (HCC) Beat Premature Ventricular documented in this encounter Administered Medications Inactive Administered Medications - up to 3 most recent administrations Medication Order MAR Action Action Date Dose Rate Site ammonia N 13 injection MCC (AMMONIA N-13) 9-16.5 millicurie, intravenous, Once, On Wed01/05/23 at 1445, For 1 dose, Imaging Protocol Orders Given 01/05/2023 2:12 PM CDT 12.15 millicuries fludeoxyglucose F 18 injection [facility] (FDG F-18) 9-16.5 millicurie, intravenous, Once, On Wed01/05/23 at 1445, For 1 dose, Imaging Protocol Orders Given 01/05/2023 2:23 PM CDT 15.48 millicuries documented in this encounter
--- NOTE | 2023-08-02 09:27 | W.ANESCHARGE ---
Anesthesia Charges Start Date/Time Anesthesia Start Date: 08/02/23 Anesthesia Start Time: 09:08 Stop Date/Time Anesthesia Stop Date: 08/02/23 Anesthesia Stop Time: 09:30
--- NOTE | 2023-08-02 09:45 | W.ANESCHARGE ---
Anesthesia Charges Start Date/Time Anesthesia Start Date: 08/02/23 Anesthesia Start Time: 09:08 Stop Date/Time Anesthesia Stop Date: 08/02/23 Anesthesia Stop Time: 09:30
== END 2023-08-02 08:06 | disposition home or self-care (01) ==
LOC: OP CLINIC 08:05
PROVIDERS: PCP Family Medicine; Visit Provider Internal Medicine
DX: Z12.11 Encounter for screening for malignant neoplasm of colon (principal); K62.1 Rectal polyp; Z86.010 Personal history of colon polyps
CPT/HCPCS: 00811; 45380; 88305; J2704

== ENCOUNTER 2023-10-18 11:18 | Outpatient (CLI) | payer BC, SELFPAY ==
--- OUTSIDE RECORDS SUMMARY | 2023-10-18 11:20 | XMS_ITS ---
Author Name Unknown Organization [facility] Address [address] [place] [address] Care Team Providers Care Speck Dyer Name Role Phone Unavailable Unavailable Unavailable Surgery Details Not on file Complications Check Surgery Details section. Procedure Estimated Blood Loss Check Surgery Details section. Procedure Findings Check Surgery Details section. Procedure Specimens Taken Check Surgery Details section.
--- OUTSIDE RECORDS SUMMARY | 2023-10-18 11:20 | XMS_ITS | Referral Summary ---
Author Name Unknown Organization [facility] Address [address] [place] [address] Care Team Providers Care District Recruiter Name Role Phone Elsewhere, Pcp Primary Care Provider Unavailabl e Source Comments Patient records contain information from all sites at [facility]. For routine questions regarding patient records, call [phone] during business hours, M-F 8:00 AM - 5:00 PM Central Time. Record requests for emergency care only can be directed to [phone] at any time.[facility] Allergies Active Allergy Reactions Criticality Noted Date [...] living situation today? I have a [facility] place to live 01/21/2023 Sex and Gender Information Value Date Recorded Sex Assigned at Female 01/21/2023 9:13 AM CDT Gender Identity Female 01/21/2023 9:13 AM CDT Sexual Orientation Straight 01/21/2023 9: 13 AM CDT Last Filed Vital Signs Vital Sign Reading Time Taken Comments Blood Pressure 124/81 05/25/2023 11:19 AM INSPECTOR SHELLS Pulse 67 05/25/2023 11:19 AM INSPECTOR SHELLS Temperature 36.7 ??C (98.1 ??F) 03/01/2023 8:01 AM CD T Respiratory Rate 10 03/01/2023 8:01 AM CDT Oxygen Saturation 96% 03/01/2023 5:15 PM CDT Inhaled Oxygen Concentration - - Weight 98.4 kg (216 lb 14.9 oz) 023 11:19 AM INSPECTOR SHELLS Height 165 cm (5' 4.96) 05/25/2023 11: 19 AM INSPECTOR SHELLS Body Mass Index 36.14 05/25/2023 11:19 AM INSPECTOR SHELLS Plan of Treatment Not on file Advance Directives For more information, please contact: [phone] * Full Code (Latest Code Status on File) Date Activated Date Inactivated Comments 03/01/2023 1:11 PM 03/01/2023 7:34 PM Question Answer Comments Full Code: Not Discussed Due to: Patient not available Care Teams District Recruiter Relationship Specialty Start Date End Date Elsewhere, Pcp PCP - General Internal Medicine 02/26/23
--- OUTSIDE RECORDS SUMMARY | 2023-10-18 11:20 | XMS_ITS | Clinical Summary ---
Author Name Unknown Organization [facility] Address [address] [place] [address] Care Team Providers Care Missile Control Pilot Name Role Phone Elsewhere, Pcp Primary Care Provider Unavailabl e Source Comments Patient records contain information from all sites at [facility]. For routine questions regarding patient records, call [phone] during business hours, M-F 8:00 AM - 5:00 PM Central Time. Record requests for emergency care only can be directed to [phone] at any time.[facility] Allergies Active Allergy Reactions Criticality Noted Date [...] ablation, February 2023 Ventricular Tachycardia Unspecified 01/27/2023 Family History Medical History Relation Name Comments Alcohol abuse Brother Brian Seth Depression Brother Brian Seth Drug abuse Brother Brian Seth Psychiatric Brother Brian Seth Schizophrenia Anxiety disorder Daughter Maddie [place] Depression Daughter Maddie [place] Alcohol abuse Father Michael Seth Diabetes Father Michael Seth Type 2 -insul in shots Parkinson disease Father Michael Green Obesity Father's Sister 1 Doris Madelyn Obesity Father's Sister 2 Mari Tybring Obesity Father's Sister 3 Kristy Green Coronary artery disease Maternal Grandfather Michael neff at age 49 Breast cancer Maternal Grandmother Kelsey at 80 years, hormone responsive Hypertension Maternal Grandmother Kelsey Obesity Maternal Grandmother Kelsey Anxiety disorder Mother Doris Prashant Veras Clotting disorder Mother Doris Renita [place] of cardio/pulmonary embolism at age 71 Drug abuse Mother Doris Seemvalarie Veras Hyperlipidemia Mother Doris Prashant [place] Migraines Mother Doris Seemvalarie Veras Asthma Paternal Grandfather Maurisio Rolo Parkinson disease Paternal Grandfather Maurisio Seth Stroke Paternal Grandmother Kennedy Mon[place] of massive stroke at age 94 Relation Name Status Comments Brother Brian Seth Daughter Maddie [place] Father Michael Seth Father's Sister 1 Doris Madelyn Father's Sister 2 Mari Tybring Father's Sister 3 Kristy Green Maternal Grandfather Michael Cerda Maternal Grandmother Kelsey Mother Doris Seemvalarie Veras Paternal Grandfather Maurisio Monroykerly Paternal Grandmother Kennedy Monroykerly Social History Tobacco [...] your living situation today? I have a [facility] place to live 01/21/2023 Sex and Gender Information Value Date Recorded Sex Assigned at Female 01/21/2023 9:13 AM CDT Gender Identity Female 01/21/2023 9:13 AM CDT Sexual Orientation Straight 01/21/2023 9: 13 AM CDT Last Filed Vital Signs Vital Sign Reading Time Taken Comments Blood Pressure 124/81 05/25/2023 11:19 AM MIXING MACHINE TENDER CORK GASKET Pulse 67 05/25/2023 11:19 AM MIXING MACHINE TENDER CORK GASKET Temperature 36.7 ??C (98.1 ??F) 03/01/2023 8:01 AM CD T Respiratory Rate 10 03/01/2023 8:01 AM CDT Oxygen Saturation 96% 03/01/2023 5:15 PM CDT Inhaled Oxygen Concentration - - Weight 98.4 kg (216 lb 14.9 oz) 023 11:19 AM MIXING MACHINE TENDER CORK GASKET Height 165 cm (5' 4.96) 05/25/2023 11: 19 AM MIXING MACHINE TENDER CORK GASKET Body Mass Index 36.14 05/25/2023 11:19 AM MIXING MACHINE TENDER CORK GASKET Plan of Treatment Health Maintenance Due Date Last Done Comments CT Colonography 1972 Cologuard 1972 FIT 1970 Hepatitis C Screening 1970 Mammogram 1972 Hepatitis B Vaccines (1 of 3 - 19+ 3-dose series) 12/09/1991 Zoster Vaccines (1 of 2) 2022 Influenza Vaccine (#1) 2023 , 04/07/2021, 03/30/2020, Additional history exists Depression Screening [...] on patient's age to complete this topic Advance Directives For more information, please contact: [phone] * Full Code (Latest Code Status on File) Date Activated Date Inactivated Comments 03/01/2023 1:11 PM 03/01/2023 7:34 PM Question Answer Comments Full Code: Not Discussed Due to: Patient not available Care Teams Missile Control Pilot Relationship Specialty Start Date End Date Elsewhere, Pcp PCP - General Internal Medicine 02/26/23
--- OUTSIDE RECORDS SUMMARY | 2023-10-18 11:21 | XMS_ITS | Clinical Summary ---
Author Name Unknown Organization [facility] Address [place], [place] [address] Care Team Providers Care Template Maker Name Role Phone Regina Melendez Primary Care Provid er Allergies Active Allergy Reactions Criticality Noted Date Comments Penicillins Rash 12/28/2013 Medications Medication Sig Dispensed Refills Start Date End Date Status sertraline (ZOLOFT) 25 mg tablet Take 25 mg by mouth once daily. 3 03/24/2019 Active gabapentin (NEURONTIN) 300 mg capsuleIndications:E ye muscle twitches Take 1 capsule by mouth at bedtime. 30 capsule 09/11/2019 Active Active Problems No known active problems Encounters Date Type Department Care Team Description 08/02/2023 Lab Requisition [facility] [phone] Amando Cordero MD from Last 3 Months Immunizations Name Administration Dates Next Due AMB [...] Comments Blood Pressure 120/76 09/10/2021 9:42 AM OPTOMETRIC TECHNOLOGIST Pulse 72 09/10/2021 9:42 AM OPTOMETRIC TECHNOLOGIST Temperature 36.4 ??C (97.6 ??F) 05/16/2019 9:08 AM CS T Respiratory Rate - - Oxygen Saturation 97% 09/10/2021 9:42 AM OPTOMETRIC TECHNOLOGIST Inhaled Oxygen Concentration - - Weight 98.1 kg (216 lb 3.2 oz) 09/10/2021 9:42 A M OPTOMETRIC TECHNOLOGIST Height 163.8 cm (5' 4.5) 09/11/2019 5:55 PM OPTOMETRIC TECHNOLOGIST Body Mass Index 36.54 09/11/2019 5:55 PM OPTOMETRIC TECHNOLOGIST Plan of Treatment Health Maintenance Due Date [...] 05/16/2021, 10/16/2020, 09/18/2020 Influenza for age 50-64 03/12/2024 06/02/20 16, 06/06/2013, 06/09/2012, Additional history exists Pap test for age 21-65 11/12/2025 3, 11/12/2022, 11/10/2016, Additional history exists Tdap Completed 06/09/2012 Pneumococcal series for age 6-64 Aged Out No longer eligible based on patient's age to complete this topic Procedures Procedure Name Priority Date/Time Associated Diagnosis Comments LAB TRACKING EVENT Routine 08/02/2023 9: 20 AM OPTOMETRIC TECHNOLOGIST PATH TISSUE EXAM Routine 08/02/2023 9:20 AM OPTOMETRIC TECHNOLOGIST HPV THIN PREP Routine 11/12/2022 1:28 PM CDT from Last 3 Months or Most Recently Relevant to Health Maintenance Results * LAB TRACKING EVENT (08/02/2023 9:20 AM OPTOMETRIC TECHNOLOGIST) Other (Other) Client Collect / Unknown 08/02/2023 9:20 AM OPTOMETRIC TECHNOLOGIST 08/02/2023 10:10 PM OPTOMETRIC TECHNOLOGIST Amando Cordero MD LAB BILL ONLY [facility] [address] [place] [address], * PATH TISSUE EXAM (08/02/2023 9:20 AM OPTOMETRIC TECHNOLOGIST) Case Report Pathology Report ?Case: [id number] ? Authorizing Provider: ??Amando Cordero MD ?Collected: ? 08/02/2023 0920 ? Ordering Location: ? [facility] ?Received: ?08/03/2023 1023 ? Pathologist: ? Angelina Frausto MD ? Specimen: ?Rectal Polyp ? 08/04/2023 11:19 AM [facility] Final Diagnosis A) RECTUM, POLYPECTOMY: 1. Hyperplastic polyp 08/04/2023 11:[address] [facility] Clinical Information Surveillance colonoscopy 08/04/2023 11:19 AM [facility] Gross Description A) Received in formalin is a perez mucosal fragment measuring 3 mm in greatest dimension, which is entirely submitted in one cassette. It is labeled with the patient's name and designated rectum polyp. Dante Palma 08/03/2023 11:00 AM 08/04/2023 11:[address] [facility] Microscopic Description The final diagnosis is based on microscopic examination of appropriate sections of all specimens. 08/04/2023 11:[address] [facility] Additional Information Interpreted at [facility] [employer] [facility], Central Laboratory - [address], [place] [address] 08/04/2023 11:[address] [facility] Other (Rectal Polyp ) 08/02/2023 9:20 AM OPTOMETRIC TECHNOLOGIST 08/03/2023 10:23 AM [facility] Amando Cordero MD PATHOLOGY/CYTOLOGY [facility] [address] * HPV HIGH RISK (11/12/2022 1:28 PM CDT) TYPE 16 Negative Negative 11/18/2022 5:02 PM CDT [facility] [employer] [facility] TYPE 18 Negative Negative 11/18/2022 5:02 PM CDT [facility] TR[facility] LAB[facility] OTHER HIGH RISK TYPES Negative Negative 11/18/2022 5:02 PM CDT [facility] LABORAT[facility] Other (Cervical/Vagina l) 11/12/2022 1:28 PM CDT 11/16/2022 6:09 PM CDT Narrative [facility] - 11/18/2022 5:02 PM CDT HPV types 16, 18, 31, 33, 35, 39, 45, 51, 52, 56, 58, 59, 66 and 68 DNA were undetectable or below the pre-set threshold. Methodology: Emeli Jay 4800 HPV Test Catherine Murrell MD MICROBIOLOGY [facility] [address] [place] [address], from Last 3 Months or Most Recently Relevant to Health Maintenance Care Teams Template Maker Relationship Specialty Start Date End Date Regina Melendez DO PCP - General Family Practice 08/12/12
--- NOTE | 2023-10-18 11:30 | MM_ITS ---
Patient: DOROTHY OLSEN Facility:?[facility] Patient ID:?[id number] Site Patient ID:?[id number]. Site :?1970 Study:?XRay-Breast Bilateral 3D W/CAD-10/18/2023 11:39:58 AM Ordering Physician:Vani Final Report: BILATERAL SCREENING MAMMOGRAM WITH COMPUTER-AIDED DETECTION AND TOMOSYNTHESIS TECHNIQUE: CC and MLO views were obtained. These mammographic images have been obtained using full-field digital technique. These mammographic images were interpreted with the benefit of computer-aided detection. Breast Tomosynthesis was used in this interpretation. COMPARISON FILM: 05/29/22, 08/02/20, 05/05/19. FINDINGS: There are scattered areas of fibroglandular density IMPRESSION: There is no radiographic evidence for malignancy. ASSESSMENT: BI-RADS Category 1: Negative RECOMMENDATION: Routine screening mammogram in 1 year. A lay language report of this examination will be provided to the patient. Prasad Lei M.D. Diagnostic Radiologist [email or web address] SUMAYA/xander D& Transcribed: 3:46 p.m. MARY/Dictated by: Prasad Lei MD @ 10/18/2023 12:07:00 PM Signed by:?Prasad Lei MD @10/18/2023 3:48:33 PM (Electronic Signature)
== END 2023-10-18 11:19 | disposition home or self-care (01) ==
PROVIDERS: PCP Family Medicine; Visit Provider Family Medicine
DX: Z12.31 Encounter for screening mammogram for malignant neoplasm of breast (principal)
CPT/HCPCS: 77063; 77067

== ENCOUNTER 2024-05-30 09:04 | Outpatient (CLI) | payer BC, SELFPAY ==
--- OUTSIDE RECORDS SUMMARY | 2024-06-01 09:54 | XMS_ITS | Clinical Summary ---
Author Organization [facility] Address [place], [place] [address] Care Team Providers Care Cane Flume Chute Operator Name Role Phone Regina Melendez Primary Care [...] Comments Blood Pressure 120/76 09/10/2021 9:42 AM SALES CONSULTANT Pulse 72 09/10/2021 9:42 AM SALES CONSULTANT Temperature 36.4 C (97.6 F) 05/16/2019 9:08 AM SALES CONSULTANT Respiratory Rate - - Oxygen Saturation 97% 09/10/2021 9:42 AM SALES CONSULTANT Inhaled Oxygen Concentration - - Weight 98.1 kg (216 lb 3.2 oz) 09/10/2021 9:42 A M SALES CONSULTANT Height 163.8 cm (5' 4.5) 09/11/2019 5:55 PM SALES CONSULTANT Body Mass Index 36.54 09/11/2019 5:55 PM SALES CONSULTANT Plan of Treatment Health Maintenance Due Date [...] 2) 2022 COVID-19 vaccine series ( season) 2024 05/16/2021, 10/16/2020, 09/18/2020 Influenza for age 50-64 03/12/2024 06/02/20 16, 06/06/2013, 06/09/2012, Additional history exists Pap test for age 21-65 11/12/2025 3, 11/12/2022, 11/10/2016, Additional history exists Tdap Completed 06/09/2012 Pneumococcal series for age 6-64 Aged Out No longer eligible based on patient's age to complete this topic Procedures Procedure Name Priority Date/Time Associated Diagnosis Comments HPV HIGH RISK Routine 11/12/2022 1:28 PM CDT from Last 3 Months or Most Recently Relevant to Health Maintenance Results * HPV HIGH RISK (11/12/2022 1:28 PM CDT) TYPE 16 Negative Negative 11/18/2022 5:02 PM CDT [facility] TRAL LABORAT[facility] TYPE 18 Negative Negative 11/18/2022 5:02 PM CDT [facility] TRAL LAB[facility] OTHER HIGH RISK TYPES Negative Negative 11/18/2022 5:02 PM CDT [facility] Other (Cervical/Vagina l) 11/12/2022 1:28 PM CDT 11/16/2022 6:09 PM CDT Narrative [facility] - 11/18/2022 5:02 PM CDT HPV types 16, 18, 31, 33, 35, 39, 45, 51, 52, 56, 58, 59, 66 and 68 DNA were undetectable or below the pre-set threshold. Methodology: Emeli Jay 4800 HPV Test Catherine Murrell MD MICROBIOLOGY [facility] [address] [place] [address], from Last 3 Months or Most Recently Relevant to Health Maintenance Care Teams Cane Flume Chute Operator Relationship Specialty Start Date End Date Regina Melendez DO PCP - General Family Practice 08/12/12
--- OUTSIDE RECORDS SUMMARY | 2024-06-01 09:54 | XMS_ITS ---
Author Organization [facility] Address [address] [place] [address] Care Team Providers Care Flatwork Feeder Name Role Phone Unavailable Unavailable Unavailable Surgery Details Not on file Complications Check Surgery Details section. Procedure Estimated Blood Loss Check Surgery Details section. Procedure Findings Check Surgery Details section. Procedure Specimens Taken Check Surgery Details section.
--- OUTSIDE RECORDS SUMMARY | 2024-06-01 09:54 | XMS_ITS | Referral Summary ---
Author Organization [facility] Address [address] [place] [address] Care Team Providers Care Clinical Laboratory Service Teacher Name Role Phone Elsewhere, Pcp Primary Care Provider Unavailabl e Source Comments Patient records contain information from all sites at [facility]. For routine questions regarding patient records, call [phone] during business hours, M-F 8:00 AM - 5:00 PM Central Time. Record requests for emergency care only can be directed to [phone] at any time.[facility] Allergies Active Allergy Reactions Criticality Noted Date Comments Penicillins Itching,Rash 11/12/2009 Medications Vitamin D3 50 mcg (2,000 unit) tablet Take 50 mcg by mouth daily. 11/12/2022 Active famotidine (PEPCID) 20 mg tablet Take 20 mg by mouth as needed. 11/12/2009 Active rosuvastatin (CRESTOR) 5 mg tablet Take 5 mg by mouth daily. 11/12/2022 Active sertraline (ZOLOFT) 25 mg tablet Take 25 mg by mouth daily. Active Active Problems Problem Noted Date Diagnosed Date PreDiabetes 02/25/2023 Obesity Body Mass Index 30-39.9 Adult 02/25/2023 Gastroesophageal Reflux Disease 02/25/2023 Dyslipidemia 02/25/2023 Hernia Hiatal 02/25/2023 Depression 02/25/2023 Anxiety 02/25/2023 Beat Premature Ventricular 01/27/2023 Overview (03/01/2023): Status post catheter ablation, February 2023 Ventricular [...] your living situation today? I have a [facility] place to live 01/21/2023 Comments No Sex and Gender Information Value Date Recorded Sex Assigned at Female 01/21/2023 9:13 AM CDT Legal Sex Female 10:23 PM POLISHER IMPLANT Gender Identity Female 01/21/2023 9:13 AM CDT Sexual Orientation Straight 01/21/2023 9: 13 AM CDT Last Filed Vital Signs Vital Sign Reading Time Taken Comments Blood Pressure 124/81 05/25/2023 11:19 AM POLISHER IMPLANT Pulse 67 05/25/2023 11:19 AM POLISHER IMPLANT Temperature 36.7 C (98.1 F) 03/01/2023 8:01 AM CDT Respiratory Rate 10 03/01/2023 8:01 AM CDT Oxygen Saturation 96% 03/01/2023 5:15 PM CDT Inhaled Oxygen Concentration - - Weight 98.4 kg (216 lb 14.9 oz) 023 11:19 AM POLISHER IMPLANT Height 165 cm (5' 4.96) 05/25/2023 11: 19 AM POLISHER IMPLANT Body Mass Index 36.14 05/25/2023 11:19 AM POLISHER IMPLANT Plan of Treatment Not on file Procedures Procedure Name Priority Date/Time Associated Diagnosis Comments BASIC METABOLIC PANEL, S/P Routine 02/26/2023 1:03 PM CDT Beat Premature Ventricular Ventricular Tachycardia Unspecified (HCC) LIPID PANEL, S Routine 01/04/2023 11:20 AM CDT Ventricular Tachycardia Unspecified (HCC) COLONOSCOPY Routine 12/11/2015 10:37 AM CDT from Last 3 Months or Most Recently Relevant to Health Maintenance Results * Basic Metabolic Panel (02/26/2023 1:03 PM CDT) Potassium, S 4.6 3.6 - 5.2 mmol/L [...] PM CDT Julito Baker, B.Ch., B.A.O. LAB BLOOD ADD- ON Final Result [facility] [address] [place] [address], [facility] [address] [place] [address] * (ABNORMAL) Lipid Panel (01/04/2023 11:20 AM CDT) Pathologist [facility] Triglycerides 149 mg/dL 01/04/2023 12:39 PM CDT [...] 11:20 AM CDT 01/04/2023 12:04 PM CDT us Chapin Brito M.D. LAB BLOOD ADD-ON Final Result [facility] [address] [place] [address], [facility] [address] [place] [address] * Colonoscopy (12/11/2015 10:37 AM CDT) 12/11/2015 10:3 7 AM CDT us Zoraida Shelton M.D. GI PROCEDURE ORDERABLES Fin al Result [facility] [address] [place] [address], [facility] from Last 3 Months or Most Recently Relevant to Health Maintenance Insurance MEDICA Advance Directives For more information, please contact: [phone] * Full Code (Latest Code Status on File) Date Activated Date Inactivated Comments 03/01/2023 1:11 PM 03/01/2023 7:34 PM Question Answer Comments Full Code: Not Discussed Due to: Patient not available Care Teams Clinical Laboratory Service Teacher Relationship Specialty Start Date End Date Elsewhere, Pcp PCP - General Internal Medicine 02/26/23
--- OUTSIDE RECORDS SUMMARY | 2024-06-01 09:54 | XMS_ITS | Clinical Summary ---
Author Organization [facility] Address [address] [place] [id number] Care Team Providers Care Hydraulic Design Engineer Name Role Phone Elsewhere, Pcp Primary Care Provider Unavailabl e Source Comments Patient records contain information from all sites at [facility]. For routine questions regarding patient records, call [phone] during business hours, M-F 8:00 AM - 5:00 PM Central Time. Record requests for emergency care only can be directed to [phone] at any time.[facility] Allergies Active Allergy Reactions Criticality Noted Date [...] Brian Seth Schizophrenia Anxiety disorder Daughter Maddie Joyce Depression Daughter Maddie Joyce Alcohol abuse Father Michael Seth Diabetes Father Michael Seth Type 2 -insul in shots Parkinson disease Father Michael [place] Obesity Father's Sister 1 Doris Madelyn Obesity Father's Sister 2 Mari [place] Obesity Father's Sister 3 Kristy [place] Coronary artery disease Maternal Grandfather Michael neff at age 49 Breast cancer Maternal Grandmother Kelsey at 80 years, hormone responsive Hypertension Maternal Grandmother Kelsey Obesity Maternal Grandmother Kelsey Anxiety disorder Mother Doris Prashant Veras Clotting disorder Mother Doris Renita chela Veras of cardio/pulmonary embolism at age 71 Drug abuse Mother Doris Prashant Veras Hyperlipidemia Mother Doris Prashant [place] Migraines Mother Doris Seemvalarie [place] Asthma Paternal Grandfather Maurisio Rolo Parkinson disease Paternal Grandfather Maurisio Seth Stroke Paternal Grandmother Kennedy Rolo of massive stroke at age 94 Relation Name Status Comments Brother Brian Seth Daughter Maddie Joyce Father Michael Seth Father's Sister 1 Doriswilian Bully Father's Sister 2 Mari [place] Father's Sister 3 Kristy [place] Maternal Grandfather Michael Cerda Maternal Grandmother Kelsey Mother Doris Cedra Veras Paternal Grandfather Maurisio Rolo Paternal Grandmother Kennedy Rolo Social History Tobacco Use Types Packs/Day Years [...] your living situation today? I have a [facility] place to live 01/21/2023 Comments No Sex and Gender Information Value Date Recorded Sex Assigned at Female 01/21/2023 9:13 AM CDT Legal Sex Female 10:23 PM CENTRAL LAB TECHNICIAN Gender Identity Female 01/21/2023 9:13 AM CDT Sexual Orientation Straight 01/21/2023 9: 13 AM CDT Last Filed Vital Signs Vital Sign Reading Time Taken Comments Blood Pressure 124/81 05/25/2023 11:19 AM CENTRAL LAB TECHNICIAN Pulse 67 05/25/2023 11:19 AM CENTRAL LAB TECHNICIAN Temperature 36.7 C (98.1 F) 03/01/2023 8:01 AM CDT Respiratory Rate 10 03/01/2023 8:01 AM CDT Oxygen Saturation 96% 03/01/2023 5:15 PM CDT Inhaled Oxygen Concentration - - Weight 98.4 kg (216 lb 14.9 oz) 023 11:19 AM CENTRAL LAB TECHNICIAN Height 165 cm (5' 4.96) 05/25/2023 11: 19 AM CENTRAL LAB TECHNICIAN Body Mass Index 36.14 05/25/2023 11:19 AM CENTRAL LAB TECHNICIAN Plan of Treatment Health Maintenance Due Date Last Done Comments CT Colonography 1972 Cologuard 1972 FIT 1972 Hepatitis C Screening 1972 Mammogram 1972 Hepatitis B Vaccines (1 of 3 - 19+ 3-dose series) 12/09/1991 Zoster Vaccines (1 of 2) 2022 Depression Screening (Annual PHQ-2) 07/12/2023 Fasting Glucose for Diabetes Screening 02/27/2024 02/26/2023, 12/03/2015 COVID-19 Vaccine ( season) 2024 04/15/2023, 06/12/2022, 05/16/2021, Additional history exists Influenza Vaccine (#1) 2024 , 04/27/2022, 04/07/2021, Additional history exists Cervical/Vaginal Cancer Screening 11/12/2025 11/12/2022 Colonoscopy 12/10/2025 12/11/2015 Colorectal Cancer Screening 12/10/2025 Lipid (Cholesterol) Screening 01/05/2028 01/04/2023 DTaP,Tdap,and Td Vaccines (3 - Td or Tdap) 08/22/2031 08/22/2021, 06/09/2012 IPV Vaccines Aged Out No longer eligi ble based on patient's age to complete this topic Pneumococcal vaccine (0-64 years) Aged Out No [...] Basic Metabolic Panel (02/26/2023 1:03 PM CDT) Pathologist [facility] Potassium, S 4.6 3.6 - 5.2 mmol/L [...] CDT 02/26/2023 1:47 PM CDT Julito Baker, B.Simba., B.A.O. LAB BLOOD ADD- ON Final Result [facility] [address] [place] [address], [place] DTL [facility] [address] [place] [address] * (ABNORMAL) Lipid Panel (01/04/2023 11:20 AM [...] ----ADDITIONAL INFORMATION---- LDL cholesterol calculated using the Leiaj/NIH equation. Cholesterol, HDL, S 62 >=50 mg/dL [...] CDT Chapin Brito M.D. LAB BLOOD ADD-ON Final Result [facility] [address] [place] [address], [place] [facility] [address] [place] [address] * Colonoscopy (12/11/2015 10:37 AM CDT) 12/11/2015 10:3 7 AM CDT Zoraida Shelton M.D. GI PROCEDURE ORDERABLES Fin al Result [facility] [address] [place] [address] from Last 3 Months or Most Recently Relevant to Health Maintenance Insurance MEDICA Advance Directives For more information, please contact: [phone] * Full Code (Latest Code Status on File) Date Activated Date Inactivated Comments 03/01/2023 1:11 PM 03/01/2023 7:34 PM Question Answer Comments Full Code: Not Discussed Due to: Patient not available Care Teams Hydraulic Design Engineer Relationship Specialty Start Date End Date Elsewhere, Pcp PCP - General Internal Medicine 02/26/23
== END 2024-05-30 09:05 | disposition home or self-care (01) ==
LOC: NFLDREF 06-01 09:52
PROVIDERS: PCP Family Medicine; Referring Provider Family Medicine; Visit Provider Family Medicine
DX: Z00.00 Encounter for general adult medical examination without abnormal findings (principal); E55.9 Vitamin D deficiency, unspecified; E11.9 Type 2 diabetes mellitus without complications; E78.5 Hyperlipidemia, unspecified
CPT/HCPCS: 80053; 80061; 82306; 82652

== ENCOUNTER 2024-09-18 07:45 | Outpatient (CLI) | payer BC, SELFPAY | END 2024-09-18 07:46 | disposition home or self-care (01) | LOC: NFLDREF 09-19 07:41 | PROVIDERS: PCP Family Medicine; Referring Provider Family Medicine; Visit Provider Family Medicine | DX: E78.5 Hyperlipidemia, unspecified (principal); E11.9 Type 2 diabetes mellitus without complications; E55.9 Vitamin D deficiency, unspecified; Z79.84 Long term (current) use of oral hypoglycemic drugs | CPT/HCPCS: 80061; 82043; 82306; 82570 ==

== ENCOUNTER 2024-11-27 14:26 | Outpatient (CLI) | payer BC, SELFPAY ==
--- NOTE | 2024-11-27 14:40 | CRLHL7_ITS ---
For Patients: As a result of the Century Cures Act, medical imaging exams and procedure reports are released immediately into your electronic medical record. You may view this report before your referring provider. If you have questions, please contact your health care provider. INDICATION: BILATERAL SCREENING MAMMOGRAM, ASYMPTOMATIC 53 Y/O FEMALE COMPARISON: 10/18/2023, 05/29/2022, 08/02/2020 TECHNIQUE: Digital mammogram in CC and MLO projections including computer-aided detection (CAD) and tomosynthesis. BREAST COMPOSITION: There are scattered areas of fibroglandular density. FINDINGS: No suspicious findings. ASSESSMENT: BI-RADS 1 Negative RECOMMENDATION: Annual screening mammogram. A lay language report of this examination will be provided to the patient. Dictated by: Prasad Lei MD @ 11/28/2024 08:36:05 (Electronically Signed)
== END 2024-11-27 14:27 | disposition home or self-care (01) ==
LOC: MAMMO 14:27
PROVIDERS: PCP Family Medicine; Visit Provider Family Medicine
DX: Z12.31 Encounter for screening mammogram for malignant neoplasm of breast (principal)
CPT/HCPCS: 77063; 77067